=== PATIENT | male | born 1945 | race Caucasian/White ===

== ENCOUNTER 2016-04-19 16:11 | Inpatient (IN) | payer MEDICARE ==
[~2016-04-19] VITALS: Ht 182.9 cm; Wt 123.8 kg
[2016-04-19] MEDS ORDERED: MORPHINE SULFATE 8 MG/ML INJ ONE (16:17)
[2016-04-19] MEDS ORDERED: ONDANSETRON HCL 4 MG/2 ML VIAL ONE (16:18)
[2016-04-19 16:25] VITALS: O2SAT 96
--- NOTE | 2016-04-19 16:40 | PD ---
HPI Chief Complaint: trauma alert Time Seen by Provider: 16:14 Travel History International Travel<30 days: No Contact w/Intl Traveler<30days: No History of Present Illness HPI Patient is a 70-year-old male who presents the emergency department from a trauma alert. Patient was apparently approximately 10 feet on a ladder when he fell, landing on the left side of his body. No LOC. Patient complains of left sided hip and arm pain. EMS noted obvious deformity, humerus fracture and possible left hip fracture. GCS 15 and hemodynamically stable en route. Patient's past medical history includes hypertension. Medications include lisinopril, HCTZ. He denies any known allergies. [facility] Past Medical History Medical History: Unable to Obtain Past Surgical History Surgical History: Unable to Obtain Allergies-Medications (Allergen,Severity, Reaction): Coded Allergies: No Known Allergies (Unverified , 04/19/16) Review of Systems ROS Limitations: Clinical Condition Physical Exam Exam Limitations: Clinical Condition Narrative PRIMARY SURVEY Airway: Intact Breathing: Bilateral breath sounds are equal Circulation: Blood pressure stable. Distal pulses intact Disability: GCS 15 Exposure: Splint to left upper extremity SECONDARY SURVEY General: Obese elderly male hard of hearing Head: Atraumatic Eyes: Left pupil 3 mm, round and reactive. Right pupil is asymmetric, but clearly postsurgical and not reactive ENT: Face is stable to palpation, no hemotympanum Neck: In cervical collar Cardiovascular: Regular rate and rhythm. Distal pulses intact. Respiratory: Clear to auscultation bilaterally. Chest: No tenderness to palpation or crepitus to the chest wall. Abdomen: Soft, nontender, nondistended. Pelvis: Pelvis is stable to AP and lateral compression Back: No tenderness to palpation of the midline spine. No step-offs or crepitus. Extremities: Left upper extremity with obvious deformity to the mid shaft humerus. Good distal sensation and pulses. Any range of motion of the left upper extremity reproduces exquisite pain. Left lower extremity without obvious shortening or rotation but any range of motion at the left hip reproduces exquisite pain. Good distal sensation and pulses. The remainder of the extremities are unremarkable without obvious deformity, normal sensation. Genitourinary: Normal external genitalia. No blood at the urethral meatus. Data Data Orders Ed Poc Ultrasound (04/19/16 ) Morphine Inj (Morphine Inj) (04/19/16 16:17) Ondansetron Inj (Zofran Inj) (04/19/16 16:18) I-Stat Profile (04/19/16 16:23) I-Stat Creatinine (04/19/16 16:23) Complete Blood Count With Diff (04/19/16 16:23) Prothrombin Time / Inr (Pt) (04/19/16 16:23) Act Partial Throm Time (Ptt) (04/19/16 16:23) Type And Screen (04/19/16 16:23) Chest, Single Ap (04/19/16 16:23) Pelvis, Ap Only (Routine) (04/19/16 16:23) Ct Brain W/O Iv Contrast(Rout) (04/19/16 16:23) Ct Cerv Spine W/O Contrast (04/19/16 16:23) Ct Abd/Pel W Iv Contrast(Rout) (04/19/16 16:23) Ct Thorax/ Chest W Iv Contrast (04/19/16 16:23) Iv Access Insert/Monitor (04/19/16 16:23) Ecg Monitoring (04/19/16 16:23) Oximetry (04/19/16 16:23) Oxygen Administration (04/19/16 16:23) Admit Order (Ed Use Only) (04/19/16 16:29) Humerus, One View (04/19/16 ) MDM Medical Screen Exam Complete: Yes Emergency Medical Condition: Yes Medical Record Reviewed: Yes Differential Diagnosis Patient is a 7-year-old male here as a trauma alert after fall from ladder greater than 10 feet. Differential includes closed head injury, skull fracture , ICH, cervical/thoracic/lumbar spine fracture, solid or visceral organ injury, hemothorax, pneumothorax, rib fracture, left humerus fracture, left hip dislocation, left hip fracture, pelvic fracture. Narrative Course Patient met by myself upon emergency department arrival. Based on monitor, IV established and blood obtained. Primary survey unremarkable. Portal chest, pelvis x-rays were obtained that by my read shows questionable left acetabular fracture, and slightly widened mediastinum. Secondary survey notable for obvious left humerus fracture, this was confirmed by x-ray and patient was splinted. Patient was transported to CT for CT of the head, neck, chest abdomen and pelvis with trauma surgery. Critical Care Narrative Aggregate critical care time was 35 minutes. Time to perform other separately billable procedures was not included in the critical care time. My time did not include minutes spent treating any other patients simultaneously or on activities that did not directly contribute to the patient's treatment. The services I provided to this patient were to treat and/or prevent clinically significant deterioration that could result in: Cardiopulmonary decompensation, , disability I provided critical care services requiring my management, as noted below: Chart data review, documentation time, medication orders and management, vital sign assessments/reviewing monitor data, ordering and reviewing lab tests, ordering and interpreting/reviewing x-rays and diagnostic studies, care of the patient and discussion of the patient with the admitting physicians. Trauma Alert - Level One Trauma Alert Level One: Full trauma team activate Time Surgeon Summoned: 15:21 (Surgeon asked to come in) Diagnosis Diagnosis: Primary Impression: Fall Qualified Code: W19.XXXA - Fall, initial encounter Additional Impression: Left humeral fracture Admitting Physician Requests: Admit Ashley Ayon MD Apr 19, 2016 16:40
[2016-04-19 16:50] LABS: I-STAT POTASSIUM 3.8 MMOL/L (3.5-4.9)
--- NOTE | 2016-04-19 16:50 | RADRPT ---
EXAM DATE/TIME: 04/19/2016 16:36 [facility] COMPARISON: No previous studies available for comparison. INDICATIONS : Trauma alert, patient fell off ladder RADIATION DOSE: 64.89 CTDIvol (mGy) MEDICAL HISTORY : Non-responsive. SURGICAL HISTORY : Non-responsive. ENCOUNTER: Initial ACUITY: 1 day PAIN SCALE: Non-responsive LOCATION: cranial TECHNIQUE: Multiple contiguous axial images were obtained of the head. Using automated exposure control and adj ustment of the mA and/or kV according to patient size, radiation dose was kept as low as reasonably a chievable to obtain optimal diagnostic quality images. FINDINGS: CEREBRUM: The ventricles are normal for age. No evidence of midline shift, mass lesion, hemorrhage or acute in farction. No extra-axial fluid collections are seen. POSTERIOR FOSSA: The cerebellum and brainstem are intact. The 4th ventricle is midline. The cerebellopontine angle i s unremarkable. EXTRACRANIAL: The visualized portion of the orbits is intact. SKULL: The calvaria is intact. No evidence of skull fracture. CONCLUSION: Normal examination. Pascual Lizama MD on April 19, 2016 at 16:47 Board Certified Radiologist. This report was verified electronically.
[2016-04-19 16:52] LABS: AUTOMATED NEUTROPHIL # 12.1 TH/MM3 (1.8-7.7); BASOPHIL # 0.1 TH/MM3 (0-0.2); BASOPHIL % 0.8 % (0.0-2.0); EOSINOPHIL # 0.3 TH/MM3 (0-0.4); EOSINOPHIL % 1.7 % (0.0-4.0); HEMATOCRIT 43.7 % (39.0-51.0); HEMO FLAGS DIFF FINAL; LYMPH % 10.6 % (9.0-44.0); LYMPHOCYTE # 1.6 TH/MM3 (1.0-4.8); MEAN CELL VOLUME 91.8 FL (80.0-100.0); MEAN CORPUSCULAR HEMOGLOBIN 30.7 PG (27.0-34.0); MEAN CORPUSCULAR HGB CONC 33.4 % (32.0-36.0); MONO % 8.6 % (0.0-8.0); NEUT % 78.3 % (16.0-70.0); PLATELET COUNT 261 TH/MM3 (150-450); RED BLOOD COUNT 4.76 MIL/MM3 (4.50-5.90); WHITE BLOOD COUNT 15.4 TH/MM3 (4.0-11.0)
[2016-04-19] MEDS ORDERED: IOHEXOL 350 MG/ML 10 ML VIAL (for RAD DIAG) IV ONE (16:55)
--- NOTE | 2016-04-19 16:56 | RADRPT ---
EXAM DATE/TIME: 04/19/2016 16:36 [facility] COMPARISON: No previous studies available for comparison. INDICATIONS : Trauma alert, patient fell off ladder RADIATION DOSE: 35.26 CTDIvol (mGy) MEDICAL HISTORY : Non-responsive. SURGICAL HISTORY : Non-responsive. ENCOUNTER: Initial ACUITY: 1 day PAIN SCALE: Non-responsive LOCATION: neck TECHNIQUE: Volumetric scanning of the cervical spine was performed. Multiplanar reconstructions in the sagittal, coronal and oblique axial planes were performed. Using automated exposure control and adjustment o f the mA and/or kV according to patient size, radiation dose was kept as low as reasonably achievable to obtain optimal diagnostic quality images. FINDINGS: Soft tissue negative. Bony structures are intact without fracture, compression, subluxation, or destr uctive change. The odontoid has a normal relationship to the arch of C1. Mild degenerative changes ar e noted at the levels of C4-5 C5-6 and C6-7 degenerative disc disease with mild spurring inclusive of seeing 45 minimal central disc bulge C5-6 osteophyte disc complex paracentral to the left and some m ild interspersed posterior facet arthritic change. CONCLUSION: No acute bony injury. Degenerative changes as described Pascual Lizama MD on April 19, 2016 at 16:52 Board Certified Radiologist. This report was verified electronically.
--- NOTE | 2016-04-19 16:57 | RADRPT ---
EXAM DATE/TIME: 04/19/2016 16:07 [facility] COMPARISON: No previous studies available for comparison. INDICATIONS : Trauma alert. Fell from ladder today. MEDICAL HISTORY : None. SURGICAL HISTORY : None. ENCOUNTER: Initial ACUITY: 1 day PAIN SCORE: Non-responsive. LOCATION: Bilateral chest FINDINGS: A single view of the chest demonstrates the lungs to be symmetrically aerated without evidence of mas s, infiltrate or effusion. The cardiomediastinal contours are unremarkable. Osseous structures are intact. CONCLUSION: No acute disease. Pascual Lizama MD on April 19, 2016 at 16:55 Board Certified Radiologist. This report was verified electronically.
--- NOTE | 2016-04-19 16:58 | RADRPT ---
EXAM DATE/TIME: 04/19/2016 16:07 CORRECTION Corrected on: April 20, 2016; CORRECTED: Corrected spelling of CONCLUSION: [facility] COMPARISON: No previous studies available for comparison. INDICATIONS : Trauma alert. Fall from ladder today MEDICAL HISTORY : None. SURGICAL HISTORY : None. ENCOUNTER: Initial ACUITY: 1 day PAIN SCORE: Non-responsive. LOCATION: Pelvis FINDINGS: A single frontal view of the pelvis demonstrates no evidence of fracture. The bony pelvic ring is in tact. Bony mineralization is normal. The soft tissues are intact. CONCLUSION: Intact pelvis Pascual Lizama MD on April 19, 2016 at 16:56 Board Certified Radiologist. This report was verified electronically. Taniya Shaw on April 20, 2016 at 10:02 Board Certified Radiologist. This report was verified electronically.
--- NOTE | 2016-04-19 16:59 | RADRPT ---
EXAM DATE/TIME: 04/19/2016 16:07 This report includes an Addendum and supersedes previous reports for this exam. [facility] COMPARISON: No previous studies available for comparison. INDICATIONS : Trauma alert. Fall from ladder today MEDICAL HISTORY : None. SURGICAL HISTORY : None. ENCOUNTER: Initial ACUITY: 1 day PAIN SCORE: Non-responsive. LOCATION: Left upper arm FINDINGS: Single view of the left humerus demonstrates no evidence of fracture. Bony mineralization is normal. CONCLUSION: Negative exam Pascual Lizama MD on April 19, 2016 at 16:57 Board Certified Radiologist. This report was verified electronically. ADDENDUM: Incoordination and review of CT scan of thorax what appears to represent possible over lying external wrap or soft tissue across the mid humerus actually represents a overlying fracture. Pascual Lizama MD on April 19, 2016 at 18:26 Board Certified Radiologist. This report was verified electronically.
[2016-04-19] MEDS ORDERED: MORPHINE SULFATE 4 MG/ML INJ IV ONE (17:00)
[2016-04-19 17:03] LABS: APTT (PATIENT) 23.3 SEC (24.3-30.1); PROTHROMBIN TIME - PATIENT 11.5 SEC (9.8-11.6)
[2016-04-19 17:13] VITALS: BP 159/73; PULSE 77; RESP 21; O2SAT 96
[2016-04-19] MEDS ORDERED: FENO50TA PO (17:19)
[2016-04-19] MEDS ORDERED: LISI40TA PO (17:19)
[2016-04-19] MEDS ORDERED: HYDR50TA3 PO (17:19)
--- NOTE | 2016-04-19 17:20 | RADRPT ---
EXAM DATE/TIME: 04/19/2016 16:45 [facility] COMPARISON: No previous studies available for comparison. INDICATIONS : Trauma alert, fall from ladder IV CONTRAST: 97 cc Omnipaque 350 (iohexol) IV ; Cumulative dose for multiple exams. ORAL CONTRAST: No oral contrast ingested. RADIATION DOSE: 20.09 CTDIvol (mGy) MEDICAL HISTORY : Non-responsive. SURGICAL HISTORY : Non-responsive. ENCOUNTER: Initial ACUITY: 1 day PAIN SCALE: Non-responsive LOCATION: abdomen TECHNIQUE: Volumetric scanning of the abdomen and pelvis was performed. Using automated exposure control and ad justment of the mA and/or kV according to patient size, radiation dose was kept as low as reasonably achievable to obtain optimal diagnostic quality images. FINDINGS: LOWER LUNGS: The visualized lower lungs are clear. LIVER: Homogeneous density without lesion. There is no dilation of the biliary tree. No calcified gallston es. Gallbladder sutures luminal structure without wall thickening SPLEEN: Normal size without lesion. PANCREAS: Within normal limits. KIDNEYS: Normal in size and shape. There is no mass, stone or hydronephrosis. ADRENAL GLANDS: Within normal limits. VASCULAR: There is no aortic aneurysm. BOWEL/MESENTERY: The stomach, small bowel, and colon demonstrate no acute abnormality. There is no free intraperitone al air or fluid. ABDOMINAL WALL: Within normal limits. RETROPERITONEUM: There is no lymphadenopathy. BLADDER: No wall thickening or mass. REPRODUCTIVE: Within normal limits. INGUINAL: There is no lymphadenopathy or hernia. MUSCULOSKELETAL: There is a fracture of the left iliac wing which is vertically oriented and extends into the acetabul um both the anterior posterior pillar and into the junction of the superior pubic ramus with the acet abulum. At the anterior acetabulum a few fragments are mildly distracted. There is no evidence of dis location. CONCLUSION: Left acetabular fracture as described above which is an extension from the left iliac wing fracture. No dislocation. Intra-abdominal pelvic contents are negative. Pascual Lizama MD on April 19, 2016 at 17:12 Board Certified Radiologist. This report was verified electronically.
--- NOTE | 2016-04-19 17:22 | RADRPT ---
EXAM DATE/TIME: 04/19/2016 16:45 [facility] COMPARISON: No previous studies available for comparison. INDICATIONS : Trauma alert, fall from ladder IV CONTRAST: 97 cc Omnipaque 350 (iohexol) IV ; Cumulative dose for multiple exams. RADIATION DOSE: 20.09 CTDIvol (mGy) ; Combined studies - Thorax/Abdomen/Pelvis MEDICAL HISTORY : Non-responsive. SURGICAL HISTORY : Non-responsive. ENCOUNTER: Initial ACUITY: 1 day PAIN SCALE: Non-responsive LOCATION: chest TECHNIQUE: Volumetric scanning of the chest was performed. Using automated exposure control and adjustment of t he mA and/or kV according to patient size, radiation dose was kept as low as reasonably achievable to obtain optimal diagnostic quality images. FINDINGS: LUNGS: There is no consolidation or pneumothorax. No concerning pulmonary nodule is visualized. PLEURA: There is no pleural thickening or pleural effusion. MEDIASTINUM: The heart and great vessels demonstrate no acute abnormality. There is no mediastinal or hilar lymph adenopathy. AXILLAE: Within normal limits. No lymphadenopathy. SKELETAL: Demonstrates a offset angulated fracture mid shaft of the left humerus. MISCELLANEOUS: The visualized upper abdominal organs demonstrate no acute abnormality. CONCLUSION: Negative examination other than appreciation of a slightly angulated offset fracture mid left humerus Pascual Lizama MD on April 19, 2016 at 17:18 Board Certified Radiologist. This report was verified electronically.
[2016-04-19] MEDS ORDERED: Post-op Orders (for Pharmacy) MISC XX ONE (17:30)
[2016-04-19] MEDS ORDERED: NALOXONE HCL 0.4 MG/ML AMP IV PRN (17:30)
[2016-04-19] MEDS ORDERED: SODIUM CHLORIDE 0.9% FLUSH 5 ML FLUSH IVF PRN (17:30)
--- NOTE | 2016-04-19 18:00 | RADRPT ---
EXAM DATE/TIME: 04/19/2016 17:40 [facility] COMPARISON: No previous studies available for comparison. INDICATIONS : Trauma alert. Patient fell off of ladder today. Left wrist pain. MEDICAL HISTORY : None. SURGICAL HISTORY : None. ENCOUNTER: Initial ACUITY: 1 day PAIN SCORE: Non-responsive. LOCATION: Left Wrist FINDINGS: Limited views of the wrist suggest abnormal first metacarpal multangular articulation questionable k[place] injury or dislocation. Radius and ulna appear intact. CONCLUSION: Abnormal appearance of base of the first metacarpal multangular articulation which could represent oc cult bony injury or dislocation on these limited views. Further evaluation with multi-obliquity plain film radiography of the wrist may be wording of consideration or CT scan Pascual Lizama MD on April 19, 2016 at 17:57 Board Certified Radiologist. This report was verified electronically.
[2016-04-19] MEDS: SODIUM CHLOR 0.9% 1000 ML INJ 1,000 ML IV SCH (18:01)
[2016-04-19] MEDS: PANTOPRAZOLE SOD 40 MG DELAYED RELEASE TAB PO SCH (18:02)
[2016-04-19] MEDS: ENOXAPARIN SODIUM 40 MG/0.4 ML SYRINGE SQ SCH (18:02)
[2016-04-19] MEDS: SODIUM CHLORIDE 0.9% FLUSH 5 ML FLUSH IVF SCH (20:18)
[2016-04-19] MEDS: DOCUSATE SODIUM 100 MG CAP PO SCH (20:18)
--- NOTE | 2016-04-19 20:21 | MH ---
cc: DIANE BATEMAN MD DATE OF ADMISSION 04/19/2016 ADMISSION DIAGNOSIS Fall from ladder, comminuted left acetabular fracture and left humerus fracture HISTORY OF PRESENT ILLNESS This 71-year-old male was climbing some sort of a ladder, fell about 10 feet on the ground, grass, hitting his left hip and left arm first. The patient did not sustain any brain injury. When seen, his [place] coma scale was 15. The patient was placed on spinal board with a C-collar in place, brought here as a priority one trauma alert. The patient, on arrival, is awake and alert and oriented. PAST MEDICAL HISTORY Hypertension. The patient takes hydrochlorothiazide PAST SURGICAL HISTORY Negative. MEDICATIONS Hydrochlorothiazide ALLERGIES No allergies. SOCIAL HISTORY He is retired. PHYSICAL EXAMINATION GENERAL: A 71-year-old male in moderate distress due to the left hip pain. HEENT: Normocephalic. No trauma to the head. Left pupil is reactive about 3 mm, right one is barely reactive. The patient has a dusky appearance of the pupil with some ground glass appearance in the sclera. He has hemianopsia on the right from a previous trauma to the eye. Extraocular muscles appear to be intact. NECK: Bilateral carotid pulses. No signs of trauma to the neck. C-collar is repositioned. CHEST: Bilateral breath sounds. No signs of trauma to the chest. HEART: Regular rhythm. ABDOMEN: Soft. Active bowel sounds. Obese. No signs of trauma to the abdomen. EXTREMITIES: The patient has bilateral femoral, popliteal, dorsalis pedis, posterior tibial pulse on palpation. Bilateral brachial, radial, ulnar pulses on palpation. He has deformity of the left arm mid humerus consistent with a trans humeral fracture. On examination, the patient had severe pain on movement of the left leg consistent with a left acetabular fracture. NEUROLOGIC: Neurologically, The patient is grossly intact. [place] coma scale is 15. PROTOCOL RESUSCITATION The patient is resuscitated under trauma principals. Primary secondary survey resuscitation and definitive care are carried out simultaneously. The patient's hemodynamic status is maintained. He is taken to the CT scan. The final injuries are left humerus fracture with displacement, left acetabular and pelvic fracture with shattered acetabulum in multiple pieces and extension into the ala ileum. PLAN The patient is being admitted for further care. Orthopedics has been consulted. Diane AVILES/ /6:40 PM /8:06 PM
[2016-04-19 20:47] VITALS: BP 150/72; PULSE 81; RESP 19; TEMP 98.8; O2SAT 93
[2016-04-19] MEDS: MORPHINE SULFATE 4 MG/ML INJ IV PRN (22:46)
[2016-04-20 00:48] VITALS: BP 125/65; PULSE 86; RESP 18; TEMP 97.8; O2SAT 93
[2016-04-20 04:45] VITALS: BP 138/71; PULSE 89; RESP 18; TEMP 98; O2SAT 92
[2016-04-20] MEDS: SODIUM CHLOR 0.9% 1000 ML INJ 1,000 ML IV SCH ×2 (04:51→20:42)
[2016-04-20 06:57] LABS: HEMATOCRIT 38.4 % (39.0-51.0); MEAN CELL VOLUME 91.7 FL (80.0-100.0); MEAN CORPUSCULAR HEMOGLOBIN 31.3 PG (27.0-34.0); MEAN CORPUSCULAR HGB CONC 34.1 % (32.0-36.0); PLATELET COUNT 228 TH/MM3 (150-450); RED BLOOD COUNT 4.19 MIL/MM3 (4.50-5.90); RED CELL DISTRIBUTION WIDTH 14.3 % (11.6-17.2); REVIEW FLAG FINAL; WHITE BLOOD COUNT 12.6 TH/MM3 (4.0-11.0)
[2016-04-20 08:00] VITALS: BP 138/69; PULSE 86; RESP 19; TEMP 98.1; O2SAT 94
[2016-04-20] MEDS: PANTOPRAZOLE SOD 40 MG DELAYED RELEASE TAB PO SCH (09:00)
[2016-04-20] MEDS: DOCUSATE SODIUM 100 MG CAP PO SCH ×2 (09:00→20:42)
[2016-04-20] MEDS: HYDROCHLOROTHIAZIDE 12.5 MG CAP PO SCH (09:29)
[2016-04-20] MEDS: LISINOPRIL 20 MG TAB PO SCH (09:29)
[2016-04-20] MEDS: MORPHINE SULFATE 4 MG/ML INJ IV PRN ×4 (09:30→23:31)
[2016-04-20] MEDS: SODIUM CHLORIDE 0.9% FLUSH 5 ML FLUSH IVF SCH ×2 (09:31→20:42)
[2016-04-20 12:00] VITALS: BP 142/76; PULSE 88; RESP 19; TEMP 98.1; O2SAT 93
--- NOTE | 2016-04-20 13:31 | OTSOAPIP ---
TIME SESSION COMPLETED: PM TREATMENT TIME: 0 MINS. CHART REVIEWED. RECEIVED ORDERS FROM [facility] TO EVALUATE AND TREAT. PATIENT WAS ADMITTED AFTER FALLING DOWN A LADDER AND SUSTAINED A LEFT HUMUER FRACTURE AND LEFT ACETABULAR FRACTURE PENDING REPAIR. PLAN: WILL HOLD ASSESSMENT UNTIL SURGERY IS COMPLETED TO PREVENT FURTHER INJURY Therapist: BELLO OVIEDO/L Signature on file
--- NOTE | 2016-04-20 14:40 | HHI.PR ---
Subjective Subjective Notes Awaiting Ortho evaluation Complains of pelvic pain with movement Objective Vitals/I&O Vital Signs Date Time Temp Pulse Resp B/P Pulse Ox O2 Delivery O2 Flow Rate FiO2 04/20/16 12:00 98.1 88 19 142/76 93 04/19/16 17:13 Nasal Cannula 2 Labs Laboratory Tests Test 04/19/16 04/20/16 16:25 06:03 White Blood Count 15.4 12.6 Red Blood Count 4.76 4.19 Hemoglobin 14.6 13.1 Bedside Hemoglobin 15.3 Hematocrit 43.7 38.4 Bedside Hematocrit 45.0 Mean Corpuscular Volume 91.8 91.7 Mean Corpuscular Hemoglobin 30.7 31.3 Mean Corpuscular Hemoglobin 33.4 34.1 Concent Red Cell Distribution Width 14.0 14.3 Platelet Count 261 228 Mean Platelet Volume 8.2 8.4 Neutrophils (%) (Auto) 78.3 Lymphocytes (%) (Auto) 10.6 Monocytes (%) (Auto) 8.6 Eosinophils (%) (Auto) 1.7 Basophils (%) (Auto) 0.8 Neutrophils # (Auto) 12.1 Lymphocytes # (Auto) 1.6 Monocytes # (Auto) 1.3 Eosinophils # (Auto) 0.3 Basophils # (Auto) 0.1 CBC Comment DIFF FINAL Differential Comment Prothrombin Time 11.5 Prothromb Time International 1.0 Ratio Activated Partial 23.3 Thromboplast Time Bedside Sodium 143 Bedside Potassium 3.8 Bedside Chloride 105 Bedside Blood Urea Nitrogen 22 Bedside Creatinine 1.1 Bedside Glucose 151 Blood Type O POSITIVE Antibody Screen NEGATIVE Radiology Last Impressions Pelvis X-Ray 04/19/161622 Signed Impressions: Service Date/Time: Tuesday, April 19, 2016 16:07 - CONCLUSION: [facility] COMPARISON: No previous studies available for comparison. INDICATIONS : Trauma alert. Fall from ladder today MEDICAL HISTORY : None. SURGICAL HISTORY : None. ENCOUNTER : Initial ACUITY: 1 day PAIN SCORE: Non-responsive. LOCATION: Pelvis FINDINGS: A single frontal view of the pelvis demonstrates no evidence of fracture. The bony pelvic ring is intact. Bony mineralization is normal. The soft tissues are intact. CONCLUSION: Intact pelvis Pascual Lizama MD Head CT 04/19/161622 Signed Impressions: Service Date/Time: Tuesday, April 19, 2016 16:36 - CONCLUSION: Normal examination. Pascual Lizama MD Chest X-Ray 04/19/16 1623 Signed Impressions: Service Date/Time: Tuesday, April 19, 2016 16:07 - CONCLUSION: No acute disease. Pascual Lizama MD Chest CT 04/19/16 1623 Signed Impressions: Service Date/Time: Tuesday, April 19, 2016 16:45 - CONCLUSION: Negative examination other than appreciation of a slightly angulated offset fracture mid left humerus Pascual Lizama MD Cervical Spine CT 04/19/16 162 Signed Impressions: Service Date/Time: Tuesday, April 19, 2016 16:36 - CONCLUSION: No acute bony injury. Degenerative changes as described Pascual Lizama MD Abdomen/Pelvis CT 04/19/16 162 Signed Impressions: Service Date/Time: Tuesday, April 19, 2016 16:45 - CONCLUSION: Left acetabular fracture as described above which is an extension from the left iliac wing fracture. No dislocation. Intra-abdominal pelvic contents are negative. Pascual Lizama MD Wrist X-Ray 04/19/16 0000 Signed Impressions: Service Date/Time: Tuesday, April 19, 2016 17:40 - CONCLUSION: Abnormal appearance of base of the first metacarpal multangular articulation which could represent occult bony injury or dislocation on these limited views. Further evaluation with multi-obliquity plain film radiography of the wrist may be wording of consideration or CT scan Pascual Lizama MD Humerus X-Ray 04/19/16 0000 Signed Impressions: Service Date/Time: Tuesday, April 19, 2016 16:07 - CONCLUSION: Negative exam Pascual Lizama MD ADDENDUM: Incoordination and review of CT scan of thorax what appears to represent possible overlying external wrap or soft tissue across the mid humerus actually represents a overlying fracture. Pascual Lizama MD Narrative Exam GENERAL: 71-year-old well-nourished, well developed male lying in bed. SKIN: Warm and dry. HEAD: Atraumatic. Normocephalic. EYES: PERRL. ENT: No nasal bleeding or discharge. Mucous membranes pink and moist. NECK: Trachea midline. No JVD. CARDIOVASCULAR: Regular rate and rhythm. RESPIRATORY: No accessory muscle use. Lungs clear to auscultation. Breath sounds equal bilaterally. GASTROINTESTINAL: Abdomen soft, non-tender, nondistended. + BS. MUSCULOSKELETAL: Extremities without cyanosis, or edema. LEFT arm with soft splint and sling in place. NEUROLOGICAL: Awake and alert. Normal speech. A/P Assessment and Plan WICHITA: Patient fell approx 10 feet while climbing a ladder and landed in the grass on his LEFT side. No LOC, GCS 15. Initial complaints of LEFT arm and hip pain. INJURIES: LEFT humerus fx LEFT acetabular fx extending to LEFT iliac wing First metacarpal occult bony injury vs dislocation PMHx: HTN Diet: Clears advanced to regular diet. Pulmonary: IS, encouraged patient use. Pain: Percocet, Morphine IV Activity: BR, PT, OT ordered. GI: Protonix PO Bowel: Colace-patient refusing. Educated on narcotic constipation and need for bowel regimen. DVT: Lovenox, SCD's Awaiting Ortho evaluation for left arm and pelvic fractures. History of hypertension, started home HCTZ and lisinopril. Plan of care discussed with patient and RN at bedside. Garth Flor Apr 20, 2016 14:40
[2016-04-20 16:00] VITALS: BP 140/72; PULSE 81; RESP 20; TEMP 99.2; O2SAT 92; O2SAT 93
--- NOTE | 2016-04-20 16:48 | EKG ---
Date Performed: 04/19/2016 Time Performed: 17:29:53 PTAGE: 89 years EKG: Sinus rhythm NONSPECIFIC T-WAVE ABNORMALITY BORDERLINE ECG NO PREVIOUS TRACING DOCTOR: Ron Cerna Interpretating Date/Time 04/20/2016 16:47:16
--- NOTE | 2016-04-20 17:55 | MB ---
cc: FELI ANDERSON M.D. DATE OF CONSULTATION: 04/20/2016 REASON FOR CONSULTATION: Multiple trauma, left acetabular fracture, left humerus fracture. HISTORY OF PRESENT ILLNESS: This is a 71-year-old male who fell from a ladder hitting the ground injuring the left hip and the left arm. He did not sustain a head injury and did not have loss of consciousness. He presents to [facility] Emergency Room. He initially had spinal precautions. He was brought as a trauma alert patient by mechanism. He was awake and alert upon arrival. He was complaining of severe left hip pain, moderate left arm pain. PAST MEDICAL HISTORY: His past medical history is positive for hypertension. PAST SURGICAL HISTORY: None. MEDICATIONS: Hydrochlorothiazide. ALLERGIES: NO KNOWN DRUG ALLERGIES. SOCIAL HISTORY: He is retired. Nonsmoker and non-drinker. FAMILY HISTORY: Reviewed. Noncontributory. REVIEW OF SYSTEMS: A ten-point review of systems is negative other than the history of present illness. PHYSICAL EXAMINATION: GENERAL: He is awake and alert and lying in bed in mild distress. HEAD, EYES, EARS, NOSE, THROAT: Normocephalic and atraumatic. Pupils are round. No scleral icterus. NECK: The neck is supple. LUNGS: Clear. HEART: Regular rhythm. ABDOMEN: Abdomen soft and nontender. EXTREMITIES: Left upper extremity has swelling and ecchymosis in the region of the humerus. He can flex and extend his wrist and digits. Brisk capillary refill. He is currently in a coaptation splint. On physical examination of the left hip, he has tenderness to palpation on the left side. He can flex and extend his ankles and toes distally. He has pain with any passive motion of the left hip. IMAGING STUDIES: X-rays of the left humerus reveal a left mid-shaft humerus fracture with only mild displacement and angular deformity. CT scan of the pelvis does reveal a comminuted left acetabular fracture, which extends into the ilium. IMPRESSION: A 71-year-old male who is status post fall from a ladder with left acetabular fracture and left humerus fracture. PLAN: I do believe, based on his fracture pattern, he would benefit from open reduction internal fixation of the acetabulum. In regards to the humerus, it is reasonable to consider surgical intervention due to the fact that he has a lower extremity injury and an upper extremity injury. The benefits of surgical intervention would include allowing at least partial weightbearing status for purposes of transfer, use of a walker. The other option would be nonoperative treatment maintaining a splint with careful observation and follow up. At this time, I will also consult Dr. Noble Gillespie who has a trauma sub-specialty training for acetabular fractures. Sequential compression devices for the lower extremities. The patient has asked appropriate questions, which have been answered today. MD YUDELKA Brian/LYNNETTE /4:21 PM /5:43 PM
[2016-04-20] MEDS: ENOXAPARIN SODIUM 40 MG/0.4 ML SYRINGE SQ SCH (18:00)
[2016-04-20 20:47] VITALS: BP 119/60; PULSE 95; RESP 19; TEMP 98.1; O2SAT 94
[2016-04-21] VITALS (7 sets, daily range): BP systolic 135–157; BP diastolic 67–78; PULSE 86–95; RESP 16–18; TEMP 96.9–98.9; O2SAT 92–94
[2016-04-21] MEDS: MORPHINE SULFATE 4 MG/ML INJ IV PRN (06:21)
--- NOTE | 2016-04-21 06:42 | PD.ORT.PN ---
Subjective Subjective Remarks s/p fall off ladder while trimming trees left hip pain and left arm pain Objective Vitals Vital Signs Date Time Temp Pulse Resp B/P Pulse Ox O2 Delivery O2 Flow Rate FiO2 04/21/16 04:32 98.4 89 18 142/78 92 04/21/16 00:45 97.4 95 16 153/67 92 04/20/16 23:36 20 04/20/16 20:47 98.1 95 19 119/60 94 04/20/16 16:00 99.2 81 20 140/72 92 04/20/16 12:00 98.1 88 19 142/76 93 04/20/16 08:00 98.1 86 19 138/69 94 I/O 04/20/16 04/20/16 04/20/16 04/21/16 04/21/16 04/21/16 07:00 15:00 23:00 07:00 15:00 23:00 Intake Total 891 ml 720 ml 2184 ml Output Total 200 ml 350 ml Balance 691 ml 370 ml 2184 ml Intake Oral 240 ml 720 ml IV Total 651 ml 2184 ml Output Urine Total 200 ml 350 ml # Voids 5 # Bowel Movements 0 0 0 Result Diagram: 04/20/16 0603 Objective Remarks LLE: pain in hip with ROM. NVI distally with good cap refill LUE: + coap splint. good ROM of fingers. NVI to median/ulnar/radial nerve Assessment & Plan Assessment and Plan 1) Left Acetabulum fx 2) Left Humerus Fx -resume diet -sign consents -new xrays of left humerus today -NPO after MN -surgery tomorrow -hold lovenox -type and screen 2 units Gamaliel Wallace Apr 21, 2016 06:42
[2016-04-21] MEDS: PANTOPRAZOLE SOD 40 MG DELAYED RELEASE TAB PO SCH (09:13)
[2016-04-21] MEDS: LISINOPRIL 20 MG TAB PO SCH (09:13)
[2016-04-21] MEDS: HYDROCHLOROTHIAZIDE 12.5 MG CAP PO SCH (09:13)
[2016-04-21] MEDS: DOCUSATE SODIUM 100 MG CAP PO SCH ×2 (09:13→22:29)
[2016-04-21] MEDS: SODIUM CHLORIDE 0.9% FLUSH 5 ML FLUSH IVF SCH ×2 (09:14→22:29)
[2016-04-21] MEDS: SODIUM CHLOR 0.9% 1000 ML INJ 1,000 ML IV SCH ×2 (09:16→19:16)
[2016-04-21] MEDS: oxyCODONE/ACETAMINOPHEN 5 MG/325 MG TAB PO PRN ×2 (10:52→17:57)
--- NOTE | 2016-04-21 13:16 | RADRPT ---
EXAM DATE/TIME: 04/21/2016 06:45 [facility] COMPARISON: No previous studies available for comparison. INDICATIONS: Trauma. ; Reconstructed from previous dataset MEDICAL HISTORY: Unobtainable. SURGICAL HISTORY: Obtainable. ENCOUNTER: Initial ACUITY: 2 days PAIN SCALE: 10/10 LOCATION: Pelvis TECHNIQUE: 3D reconstructions of the acetabulum were performed. FINDINGS: 3D reconstructions were obtained of the comminuted fracture of the acetabulum. There is a large vert ical component that extends through the iliac wing that is displaced by approximately 1.5 cm. Multip le fracture fragments are seen in the roof of the acetabulum. Symphysis is intact. There is a fracture of the posterior lip of the acetabulum with fragmentation. CONCLUSION: 3D reconstructions as described above. Parmjit Silveira MD FACR on April 21, 2016 at 12:33 Board Certified Radiologist. This report was verified electronically.
--- NOTE | 2016-04-21 14:25 | RADRPT ---
EXAM DATE/TIME: 04/21/2016 11:19 [facility] COMPARISON: CT 3D/SPECIAL RECONSTRUCTION, April 21, 2016, 6:45. INDICATIONS : Left arm Pain MEDICAL HISTORY : None. SURGICAL HISTORY : None. ENCOUNTER: Subsequent ACUITY: 3 days PAIN SCORE: 10/10 LOCATION: Left upper extremity FINDINGS: 2 views of the left humerus demonstrate a angulated mildly displaced fracture of the left humerus, mi d diaphysis with the distal portion of the humerus displaced medially one full shaft width and angula azeb approximately 45. The bones are normally mineralized. Adjacent soft tissues demonstrate moderate edema adjacent to the fracture site. CONCLUSION: Fracture of the left mid diaphysis with distal displacement approximate one shaft width medially. Carmencita Sherman MD on April 21, 2016 at 12:37 Board Certified Radiologist. This report was verified electronically.
--- NOTE | 2016-04-21 14:42 | HHI.PR ---
Subjective Subjective Notes Getting hip and left humerus repaired tomorrow Still having hip pain Objective Vitals/I&O Vital Signs Date Time Temp Pulse Resp B/P Pulse Ox O2 Delivery O2 Flow Rate FiO2 04/21/16 12:15 98.5 86 18 150/68 94 04/21/16 09:35 Nasal Cannula 2.00 Labs Laboratory Tests Test 04/19/16 04/20/16 16:25 06:03 Bedside Hemoglobin 15.3 G/DL Bedside Hematocrit 45.0 % Neutrophils (%) (Auto) 78.3 % Lymphocytes (%) (Auto) 10.6 % Monocytes (%) (Auto) 8.6 % Eosinophils (%) (Auto) 1.7 % Basophils (%) (Auto) 0.8 % Neutrophils # (Auto) 12.1 TH/MM3 Lymphocytes # (Auto) 1.6 TH/MM3 Monocytes # (Auto) 1.3 TH/MM3 Eosinophils # (Auto) 0.3 TH/MM3 Basophils # (Auto) 0.1 TH/MM3 CBC Comment DIFF FINAL Differential Comment Prothrombin Time 11.5 SEC Prothromb Time International 1.0 RATIO Ratio Activated Partial 23.3 SEC Thromboplast Time Bedside Sodium 143 MMOL/L Bedside Potassium 3.8 MMOL/L Bedside Chloride 105 MMOL/L Bedside Blood Urea Nitrogen 22 MG/DL Bedside Creatinine 1.1 MG/DL Bedside Glucose 151 MG/DL Blood Type O POSITIVE Antibody Screen NEGATIVE White Blood Count 12.6 TH/MM3 Red Blood Count 4.19 MIL/MM3 Hemoglobin 13.1 GM/DL Hematocrit 38.4 % Mean Corpuscular Volume 91.7 FL Mean Corpuscular Hemoglobin 31.3 PG Mean Corpuscular Hemoglobin 34.1 % Concent Red Cell Distribution Width 14.3 % Platelet Count 228 TH/MM3 Mean Platelet Volume 8.4 FL Radiology Last Impressions Pelvis X-Ray 04/19/16 1623 Signed Impressions: Service Date/Time: Tuesday, April 19, 2016 16:07 - CONCLUSION: [facility] COMPARISON: No previous studies available for comparison. INDICATIONS : Trauma alert. Fall from ladder today MEDICAL HISTORY : None. SURGICAL HISTORY : None. ENCOUNTER : Initial ACUITY: 1 day PAIN SCORE: Non-responsive. LOCATION: Pelvis FINDINGS: A single frontal view of the pelvis demonstrates no evidence of fracture. The bony pelvic ring is intact. Bony mineralization is normal. The soft tissues are intact. CONCLUSION: Intact pelvis Pascual Lizama MD Head CT 04/19/161622 Signed Impressions: Service Date/Time: Tuesday, April 19, 2016 16:36 - CONCLUSION: Normal examination. Pascual Lizama MD Chest X-Ray 04/19/16 162 Signed Impressions: Service Date/Time: Tuesday, April 19, 2016 16:07 - CONCLUSION: No acute disease. Pascual Lizama MD Chest CT 04/19/16 162 Signed Impressions: Service Date/Time: Tuesday, April 19, 2016 16:45 - CONCLUSION: Negative examination other than appreciation of a slightly angulated offset fracture mid left humerus Pascual Lizama MD Cervical Spine CT 04/19/16 162 Signed Impressions: Service Date/Time: Tuesday, April 19, 2016 16:36 - CONCLUSION: No acute bony injury. Degenerative changes as described Pascual Lizama MD Abdomen/Pelvis CT 04/19/161622 Signed Impressions: Service Date/Time: Tuesday, April 19, 2016 16:45 - CONCLUSION: Left acetabular fracture as described above which is an extension from the left iliac wing fracture. No dislocation. Intra-abdominal pelvic contents are negative. Pascual Lizama MD Wrist X-Ray 04/19/16 0000 Signed Impressions: Service Date/Time: Tuesday, April 19, 2016 17:40 - CONCLUSION: Abnormal appearance of base of the first metacarpal multangular articulation which could represent occult bony injury or dislocation on these limited views. Further evaluation with multi-obliquity plain film radiography of the wrist may be wording of consideration or CT scan Pascual Lizama MD Humerus X-Ray 04/19/16 0000 Signed Impressions: Service Date/Time: Tuesday, April 19, 2016 16:07 - CONCLUSION: Negative exam Pascual Lizama MD ADDENDUM: Incoordination and review of CT scan of thorax what appears to represent possible overlying external wrap or soft tissue across the mid humerus actually represents a overlying fracture. Pascual Lizama MD Narrative Exam GENERAL: 71-year-old well-nourished, well developed male lying in bed. SKIN: Warm and dry. HEAD: Atraumatic. Normocephalic. EYES: PERRL. ENT: No nasal bleeding or discharge. Mucous membranes pink and moist. NECK: Trachea midline. No JVD. CARDIOVASCULAR: Regular rate and rhythm. RESPIRATORY: No accessory muscle use. Lungs clear to auscultation. Breath sounds equal bilaterally. GASTROINTESTINAL: Abdomen soft, non-tender, nondistended. + BS. MUSCULOSKELETAL: Extremities without cyanosis, or edema. LEFT arm with soft splint and sling in place. NEUROLOGICAL: Awake and alert. Normal speech. A/P Assessment and Plan [place]: Patient fell approx 10 feet while climbing a ladder and landed in the grass on his LEFT side. No LOC, GCS 15. Initial complaints of LEFT arm and hip pain. INJURIES: LEFT humerus fx LEFT acetabular fx extending to LEFT iliac wing First metacarpal occult bony injury vs dislocation PMHx: HTN Diet: Regular, tolerating. Pulmonary: IS, encouraged patient use. Pain: Percocet, Morphine IV, still painful. Activity: BR, PT, OT evaluating GI: Protonix PO Bowel: Colace, MOM. No BM yet. DVT: Lovenox, SCD's Left arm and left acetabulum fracture repair in OR tomorrow with Ortho. Hx of HTN. Patient unsure of home dosage of lisinopril or HCTZ. Plan of care discussed with patient at bedside. Garth Flor Apr 21, 2016 14:42
[2016-04-22] VITALS: BP 134/70; PULSE 86; RESP 18; TEMP 99; O2SAT 92
[2016-04-22] MEDS: MORPHINE SULFATE 4 MG/ML INJ IV PRN ×2 (01:30→06:19)
[2016-04-22] MEDS ORDERED: SODIUM CHLORID 0.9% 500 ML IV SCH (02:30)
[2016-04-22] MEDS ORDERED: INSULIN HUMAN REGULAR 1,000 UNITS/10 ML VIAL SQ PRN (02:30)
[2016-04-22] MEDS ORDERED: LACTATED RINGER'S 1000 ML IV SCH (02:30)
[2016-04-22] MEDS ORDERED: METOPROLOL TARTRATE 25 MG TAB PO PRN (02:30)
[2016-04-22 04:00] VITALS: BP 143/70; PULSE 94; RESP 18; TEMP 99.2; O2SAT 93
[2016-04-22] MEDS ORDERED: SODIUM CHLORIDE 0.9% IV ONE (07:15)
[2016-04-22] MEDS ORDERED: TRANEXAMIC ACID IV ONE (07:15)
--- NOTE | 2016-04-22 07:16 | PD.ORT.PN ---
Subjective Subjective Remarks Resting comfortably with pain controlled Objective Vitals Vital Signs Date Time Temp Pulse Resp B/P Pulse Ox O2 Delivery O2 Flow Rate FiO2 04/22/16 04:00 99.2 94 18 143/70 93 04/22/16 00:00 99.0 86 18 134/70 92 04/21/16 20:00 96.9 92 16 157/74 92 04/21/16 18:57 18 04/21/16 16:00 98.9 94 18 153/73 92 04/21/16 12:15 98.5 86 18 150/68 94 04/21/16 09:35 93 Nasal Cannula 2.00 04/21/16 07:46 98.6 86 18 135/69 94 I/O 04/21/16 04/21/16 04/21/16 04/22/16 04/22/16 04/22/16 07:00 15:00 23:00 07:00 15:00 23:00 Intake Total 2184 ml 480 ml 240 ml Output Total 400 ml 600 ml 300 ml 400 ml Balance 1784 ml -120 ml -60 ml -400 ml Intake Oral 0 ml 480 ml 240 ml IV Total 2184 ml Output Urine Total 400 ml 600 ml 300 ml 400 ml # Voids 1 # Bowel Movements 0 0 Result Diagram: 04/20/16 0603 Objective Remarks LLE: pain in hip with ROM. NVI distally with good cap refill LUE: + coap splint. good ROM of fingers. NVI to median/ulnar/radial nerve Assessment & Plan Assessment and Plan 1) Left Acetabulum fx 2) Left Humerus Fx -Nothing by mouth -sign consents -surgery today with Dr. Gillespie -tripp lovenox -type and screen 4 units TAM ADKINS PA-C Apr 22, 2016 07:16
[2016-04-22 08:00] VITALS: BP 152/73; PULSE 93; RESP 18; TEMP 98.7; O2SAT 98
[2016-04-22] MEDS ORDERED: DEXTROSE 50% IN WATER 50 ML VIAL(D50) IV PUSH PRN (08:00)
[2016-04-22] MEDS ORDERED: GLUCAGON 1 MG/ML VIAL OTHER PRN (08:00)
[2016-04-22] MEDS ORDERED: SODIUM CHLORIDE 0.9% IV SCH (08:15)
[2016-04-22] MEDS ORDERED: TRANEXAMIC ACID IV SCH (08:15)
[2016-04-22] MEDS ORDERED: ceFAZolin 2 GM PREMIX 50 ML ONE (09:02)
[2016-04-22] MEDS ORDERED: ceFAZolin INJ 1,000 MG VIAL ONE (09:02)
[2016-04-22] MEDS ORDERED: HEPARIN SODIUM - SQ 10,000 UNITS/ML VIAL ONE (09:02)
[2016-04-22] MEDS ORDERED: VANCOMYCIN HCL 1000 MG VIAL ONE (09:02)
[2016-04-22] MEDS ORDERED: GENTAMICIN SULFATE 80 MG/2 ML VIAL ONE (09:03)
[2016-04-22] MEDS ORDERED: SODIUM CHLOR 0.9% 250 ML INJ 250 ML ONE (09:03)
[2016-04-22] MEDS: DOCUSATE SODIUM 100 MG CAP PO SCH ×2 (09:06→21:44)
[2016-04-22] MEDS: LISINOPRIL 20 MG TAB PO SCH (09:06)
[2016-04-22] MEDS: HYDROCHLOROTHIAZIDE 12.5 MG CAP PO SCH (09:06)
[2016-04-22] MEDS: SODIUM CHLORIDE 0.9% FLUSH 5 ML FLUSH IVF SCH ×2 (09:06→21:43)
[2016-04-22] MEDS: PANTOPRAZOLE SOD 40 MG DELAYED RELEASE TAB PO SCH (09:06)
[2016-04-22] MEDS ORDERED: METOCLOPRAMIDE HCL 10 MG/2 ML VIAL ONE (09:53)
[2016-04-22] MEDS ORDERED: FAMOTIDINE 20 MG/2 ML VIAL ONE (09:53)
[2016-04-22] MEDS ORDERED: MIDAZOLAM HCL 2 MG/2 ML VIAL ONE (09:57)
[2016-04-22] MEDS ORDERED: DEXAMETHASONE SOD PHOS 4 MG/ML VIAL ONE (09:57)
[2016-04-22] MEDS ORDERED: PROPOFOL 200 MG/20 ML AMP IV ONE (10:30)
[2016-04-22] MEDS ORDERED: ONDANSETRON HCL 4 MG/2 ML VIAL IV PUSH ONE (10:30)
[2016-04-22] MEDS ORDERED: NEOSTIGMINE 3 MG/3 ML SYR IV ONE (10:30)
[2016-04-22] MEDS ORDERED: PHENYLEPH/NS 1000 MCG/10 ML SYR IV ONE (10:30)
[2016-04-22] MEDS: INSULIN NovoLIN REGULAR SUPPLEMENTAL SCALE SQ SCH ×3 (11:00→21:42)
[2016-04-22] MEDS ORDERED: VANCOMYCIN HCL 1000 MG VIAL OTHER ONE (11:03)
[2016-04-22] MEDS ORDERED: ceFAZolin INJ 1,000 MG VIAL IV ONE (11:06)
[2016-04-22 11:17] LABS: BLOOD GAS BASE EXCESS 2.3 mmol/L (-2-2); BLOOD GAS CARBOXYHEMOGLOBIN 1.7 % (0-4); BLOOD GAS HCO3 27 mmol/L (22-26); BLOOD GAS METHEMOGLOBIN 1.3 % (0-2); BLOOD GAS O2 HGB SATURATION 97 % (90-100); BLOOD GAS OXYGEN CONTENT 20.4 Vol % (12.0-20.0); BLOOD GAS PCO2 49 mmHg (38-42); BLOOD GAS PO2 284 mmHg (61-120); BLOOD GAS TOTAL HGB 14.5 G/DL (12.0-16.0); CRITICAL VALUE NO; DRAW SITE ART LINE; FIO2 100 %; OXYGEN DEVICE VENTILATOR; STAT YES; TEMP CORR TO 98.6
[2016-04-22] MEDS ORDERED: GENTAMICIN SULFATE 80 MG/2 ML VIAL XX ONE (11:22)
[2016-04-22] MEDS ORDERED: PARENTERAL ELECTROLYTES PH 7.4 1000 ML BAG IV ONE (12:00)
[2016-04-22 13:26] LABS: BLOOD GAS BASE EXCESS 0.3 mmol/L (-2-2); BLOOD GAS CARBOXYHEMOGLOBIN 2.1 % (0-4); BLOOD GAS HCO3 24 mmol/L (22-26); BLOOD GAS METHEMOGLOBIN 1.4 % (0-2); BLOOD GAS O2 HGB SATURATION 95 % (90-100); BLOOD GAS OXYGEN CONTENT 16.9 Vol % (12.0-20.0); BLOOD GAS PCO2 39 mmHg (38-42); BLOOD GAS PO2 129 mmHg (61-120); BLOOD GAS TOTAL HGB 12.5 G/DL (12.0-16.0); CRITICAL VALUE NO; OXYGEN DEVICE VENTILATOR; TEMP CORR TO 98.6
[2016-04-22 13:27] LABS: DRAW SITE ART LINE; FIO2 100 %; STAT YES
[2016-04-22 13:53] LABS: HEMATOCRIT 33.4 % (39.0-51.0); REVIEW FLAG FINAL
[2016-04-22] MEDS ORDERED: MORPHINE SULFATE 4 MG/ML INJ IV PUSH PRN (15:00)
[2016-04-22] MEDS ORDERED: DO NOT ADM ANY ANTICOAGULANT DRUGS XX PRN (15:30)
[2016-04-22] MEDS ORDERED: *RESP: ALBUTEROL 2.5 MG/3 ML NEB (PRN) PERIprocedural Use ONLY NEB ONE ×2 (15:46→18:19)
[2016-04-22 15:59] LABS: HEMATOCRIT 36.3 % (39.0-51.0); REVIEW FLAG FINAL
--- NOTE | 2016-04-22 16:00 | RADRPT ---
EXAM DATE/TIME: 04/22/2016 13:35 [facility] COMPARISON: HUMERUS LEFT (MIN 2VWS), April 21, 2016, 11:19. INDICATIONS : ORIF left humerus. MEDICAL HISTORY : None. SURGICAL HISTORY : None. ENCOUNTER: Subsequent ACUITY: 3 days PAIN SCORE: Non-responsive. LOCATION: Left humerus. FINDINGS: Two view examination of the left humerus demonstrates open reduction and internal fixation of an angu lated mid humeral shaft fracture. The fracture has been stabilized with an extra medullary plate and anchoring screws. There is complete reduction of the angulation and good position of the fracture fra gments. CONCLUSION: Satisfactory appearance of the left humerus status post ORIF. Hermes Simon MD on April 22, 2016 at 15:58 Board Certified Radiologist. This report was verified electronically.
--- NOTE | 2016-04-22 16:00 | RADRPT ---
EXAM DATE/TIME: 04/22/2016 13:35 [facility] COMPARISON: CT 3D/SPECIAL RECONSTRUCTION, April 21, 2016, 6:45. INDICATIONS : ORIF left acetabulum and left pelvic crest. MEDICAL HISTORY : None. SURGICAL HISTORY : None. ENCOUNTER: Subsequent ACUITY: 3 days PAIN SCORE: Non-responsive. LOCATION: Left pelvis. FINDINGS: Examination of the pelvis demonstrates postsurgical changes following open reduction and internal fix ation of left hemipelvic fractures. The inferior margin of the diastatic left iliac fracture was stabilized an additional screw. A diastatic fracture of the left iliac wing has been reduced and fixated with 3 screws. Left superior pubic ramus fracture extending into the anterior column of the acetabulum has been stab ilized by a plate and anchoring screws. Good fracture fragment alignment is noted. The CONCLUSION: Satisfactory appearance of the left hemipelvis following ORIF as described. Hermes Simon MD on April 22, 2016 at 15:54 Board Certified Radiologist. This report was verified electronically.
[2016-04-22 16:10] VITALS: O2SAT 92
[2016-04-22] MEDS ORDERED: fentaNYL CITRATE 250 MCG/5 ML AMP ONE (16:11)
--- NOTE | 2016-04-22 16:16 | HHI.PR ---
Subjective Subjective Notes To OR today for left humerus and left acetabulum repair Complaints of hip pain Objective Vitals/I&O Vital Signs Date Time Temp Pulse Resp B/P Pulse Ox O2 Delivery O2 Flow Rate FiO2 04/22/16 08:00 98.7 93 18 152/73 98 04/21/16 09:35 Nasal Cannula 2.00 Labs Laboratory Tests Test 04/22/16 04/22/16 04/22/16 04/22/16 07:50 11:07 13:16 13:21 Blood Type O POSITIVE Antibody Screen NEGATIVE Crossmatch Leukocyte-Reduced Red Blood Cells Blood Bank Comment Blood Gas Puncture Site ART LINE ART LINE Blood Gas Patient Temperature 98.6 98.6 Blood Gas HCO3 27 24 Blood Gas Base Excess 2.3 0.3 Blood Gas Oxygen Saturation 97 95 Arterial Blood pH 7.36 7.41 Arterial Blood Partial 49 39 Pressure CO2 Arterial Blood Partial 284 129 Pressure O2 Arterial Blood Oxygen Content 20.4 16.9 Arterial Blood 1.7 2.1 Carboxyhemoglobin Arterial Blood Methemoglobin 1.3 1.4 Blood Gas Hemoglobin 14.5 12.5 Oxygen Delivery Device VENTILATOR VENTILATOR Blood Gas Ventilator Setting UNKNOWN UNKNOWN Blood Gas Inspired Oxygen 100 100 Hemoglobin 11.3 Hematocrit 33.4 Test 04/22/16 15:52 Hemoglobin 12.1 Hematocrit 36.3 Radiology Last Impressions Pelvis X-Ray 04/19/161622 Signed Impressions: Service Date/Time: Tuesday, April 19, 2016 16:07 - CONCLUSION: [facility] COMPARISON: No previous studies available for comparison. INDICATIONS : Trauma alert. Fall from ladder today MEDICAL HISTORY : None. SURGICAL HISTORY : None. ENCOUNTER : Initial ACUITY: 1 day PAIN SCORE: Non-responsive. LOCATION: Pelvis FINDINGS: A single frontal view of the pelvis demonstrates no evidence of fracture. The bony pelvic ring is intact. Bony mineralization is normal. The soft tissues are intact. CONCLUSION: Intact pelvis Pascual Lizama MD Head CT 04/19/161622 Signed Impressions: Service Date/Time: Tuesday, April 19, 2016 16:36 - CONCLUSION: Normal examination. Pascual Lizama MD Chest X-Ray 04/19/161622 Signed Impressions: Service Date/Time: Tuesday, April 19, 2016 16:07 - CONCLUSION: No acute disease. Pascual Lizama MD Chest CT 04/19/161622 Signed Impressions: Service Date/Time: Tuesday, April 19, 2016 16:45 - CONCLUSION: Negative examination other than appreciation of a slightly angulated offset fracture mid left humerus Pascual Lizama MD Cervical Spine CT 04/19/16 1623 Signed Impressions: Service Date/Time: Tuesday, April 19, 2016 16:36 - CONCLUSION: No acute bony injury. Degenerative changes as described Pascual Lizama MD Abdomen/Pelvis CT 04/19/16 1623 Signed Impressions: Service Date/Time: Tuesday, April 19, 2016 16:45 - CONCLUSION: Left acetabular fracture as described above which is an extension from the left iliac wing fracture. No dislocation. Intra-abdominal pelvic contents are negative. Pascual Lizama MD Wrist X-Ray 04/19/16 0000 Signed Impressions: Service Date/Time: Tuesday, April 19, 2016 17:40 - CONCLUSION: Abnormal appearance of base of the first metacarpal multangular articulation which could represent occult bony injury or dislocation on these limited views. Further evaluation with multi-obliquity plain film radiography of the wrist may be wording of consideration or CT scan Pascual Lizama MD Humerus X-Ray 04/19/16 0000 Signed Impressions: Service Date/Time: Tuesday, April 19, 2016 16:07 - CONCLUSION: Negative exam Pascual Lizama MD ADDENDUM: Incoordination and review of CT scan of thorax what appears to represent possible overlying external wrap or soft tissue across the mid humerus actually represents a overlying fracture. Pascual Lizama MD Narrative Exam GENERAL: 71-year-old well-nourished, well developed male lying in bed. SKIN: Warm and dry. HEAD: Atraumatic. Normocephalic. EYES: PERRL. ENT: No nasal bleeding or discharge. Mucous membranes pink and moist. NECK: Trachea midline. No JVD. CARDIOVASCULAR: Regular rate and rhythm. RESPIRATORY: No accessory muscle use. Lungs clear to auscultation. Breath sounds equal bilaterally. GASTROINTESTINAL: Abdomen soft, non-tender, nondistended. + BS. MUSCULOSKELETAL: Extremities without cyanosis, or edema. LEFT arm with soft splint and sling in place. NEUROLOGICAL: Awake and alert. Normal speech. A/P Assessment and Plan [place]: Patient fell approx 10 feet while climbing a ladder and landed in the grass on his LEFT side. No LOC, GCS 15. Initial complaints of LEFT arm and hip pain. INJURIES: LEFT humerus fx LEFT acetabular fx extending to LEFT iliac wing First metacarpal occult bony injury vs dislocation PMHx: HTN Diet: Regular, tolerating. Pulmonary: IS, encouraged patient use. Pain: Percocet, Morphine IV, still painful. Activity: BR, PT, OT evaluating. NWB LLE, TTWB LLE. Wheelchair training. GI: Protonix PO Bowel: Colace, MOM. No BM yet. DVT: Lovenox, SCD's Left arm and left acetabulum fracture repair in OR today. Pain control. Hx of HTN. Patient unsure of home dosage of lisinopril or HCTZ. Plan of care discussed with patient at bedside. Case management consulted for discharge planning. C versus inpatient rehabilitation. Disposition will depend on patient progress. Garth Flor Apr 22, 2016 16:16
[2016-04-22] MEDS: LACTATED RINGER'S 1000 ML INJ 1,000 ML IV SCH (16:30)
--- NOTE | 2016-04-22 16:49 | RADRPT ---
EXAM DATE/TIME: 04/22/2016 16:10 [facility] COMPARISON: CHEST SINGLE AP, April 19, 2016, 16:07. INDICATIONS : Central line placement, post op left shoulder MEDICAL HISTORY : None. SURGICAL HISTORY : left shoulder ENCOUNTER: Initial ACUITY: 1 day PAIN SCORE: Non-responsive. LOCATION: Bilateral chest FINDINGS: Portable AP view of the chest demonstrates a normal size cardiac silhouette. Lungs are underinflated and there is atelectasis at the bases. Right IJ line is present with distal tip in the superior vena cava. No pneumothorax is visualized. There is a partially visualized left mid humerus side plate with interlocking screws and overlying skin jayne. CONCLUSION: Right IJ central line distal tip is in the SVC. No pneumothorax is visualized. Bienvenido Soto MD on April 22, 2016 at 16:46 Board Certified Radiologist. This report was verified electronically.
[2016-04-22] MEDS ORDERED: HYDR-3366 PO (18:47)
[2016-04-22] MEDS ORDERED: XARE10TA PO (18:47)
[2016-04-22] MEDS ORDERED: WHEEMIS3 (18:49)
[2016-04-22] MEDS ORDERED: RESP: ALBUTEROL 2.5 MG/3 ML NEB (PRN) INH (19:45)
[2016-04-22] MEDS: ceFAZolin 2 GM PREMIX 50 ML IV SCH (20:29)
[2016-04-22 21:31] VITALS: BP_SYST 98; PULSE 64; RESP 18; TEMP 97.9; O2SAT 96
[2016-04-22] MEDS: oxyCODONE/ACETAMINOPHEN 5 MG/325 MG TAB PO PRN (21:42)
[2016-04-22 21:47] VITALS: O2SAT 90
[2016-04-22] MEDS: VANCOMYCIN INJ 1,000 MG in SODIUM CHLOR 0.9% 250 ML INJ 250 ML IV SCH (23:00)
[2016-04-23] VITALS (7 sets, daily range): BP systolic 104–153; BP diastolic 59–72; PULSE 64–90; RESP 18; TEMP 97.6–99; O2SAT 91–96
[2016-04-23] MEDS: ceFAZolin 2 GM PREMIX 50 ML IV SCH ×3 (03:00→17:04)
--- NOTE | 2016-04-23 06:41 | PD.ORT.PN ---
Subjective Subjective Remarks Resting comfortably with pain controlled Objective Vitals Vital Signs Date Time Temp Pulse Resp B/P Pulse Ox O2 Delivery O2 Flow Rate FiO2 04/23/16 04:47 97.8 85 18 104/66 95 04/23/16 03:15 94 Nasal Cannula 4.00 04/23/16 01:02 97.9 64 18 107/60 96 04/22/16 21:47 90 Nasal Cannula 4.00 04/22/16 21:31 97.9 64 18 98/ 96 04/22/16 19:00 98.1 101 15 130/55 97 Nasal Cannula 4 04/22/16 18:45 104 15 122/60 97 Nasal Cannula 4 04/22/16 18:30 103 17 128/75 97 Nasal Cannula 4 04/22/16 18:15 104 17 104/56 97 Simple Mask 6 04/22/16 17:45 107 16 122/60 97 Bi-Pap 04/22/16 17:15 111 14 122/62 90 Bi-Pap 04/22/16 17:00 110 14 137/69 90 Bi-Pap 04/22/16 16:45 112 12 176/74 92 Bi-Pap 04/22/16 16:30 110 14 147/82 87 Bi-Pap 04/22/16 16:15 114 12 174/94 86 Bi-Pap 04/22/16 16:12 98.3 115 22 181/104 88 Simple Mask 6 04/22/16 16:10 92 35 04/22/16 08:00 98.7 93 18 152/73 98 I/O 04/22/16 04/22/16 04/22/16 04/23/16 04/23/16 04/23/16 07:00 15:00 23:00 07:00 15:00 23:00 Intake Total 3300 ml Output Total 400 ml 1905 ml Balance -400 ml 1395 ml IV Total 300 ml Other 3000 ml Output Urine Total 400 ml 875 ml Drainage Total 30 ml Estimated Blood Loss 1000 ml # Voids 1 Result Diagram: 04/22/16 1552 Objective Remarks Pelvis: Incisions clean dry and intact with drain intact. Left lower extremity: Tenderness with movement of hip. No pain with motion of knee or ankle. Distally neurovascularly intact. Strong dorsiflexion plantar flexion of foot Left upper extremity: Clean dry dressings intact with sling in place. Normal pain with elbow motion. Distally intact sensation over the radial ulnar and median nerve distributions with good capillary refills. He is able fully extend his fingers and make a fist Assessment & Plan Assessment and Plan ORIF Left Acetabulum and posterior hemipelvis POD 1 ORIF Left Humerus Fx POD 1 Nonweightbearing left upper extremity, sling when seated Physical therapy for passive range of motion of shoulder and elbow. Active range of motion of wrist and fingers Toe-touch weightbearing left lower extremity with no active leglifts or quad sets Begin daily dressing changes both left upper extremity and left pelvis POD 2 Lovenox then convert to Xarelto after discharge Incentive spirometry SCDs Laxative choice Rehabilitation planning: Would not be safe to go home at this point TAM ADKINS PA-C Apr 23, 2016 06:41
[2016-04-23] MEDS: ACETAMINOPHEN/HYDROcodone 325 MG/10 MG TAB PO PRN ×3 (06:54→23:29)
[2016-04-23] MEDS: MAGNESIUM HYDROXIDE SUSP 30 ML CUP PO PRN (06:57)
--- NOTE | 2016-04-23 07:05 | MP ---
cc: [facility] DATE OF SURGERY 04/22/2016 PREOPERATIVE DIAGNOSES 1. Complex left acetabular fracture. 2. Left humerus shaft fracture. POSTOPERATIVE DIAGNOSES 1. Complex left acetabular fracture. 2. Left humerus shaft fracture SURGEON Noble Gillespie MD ASSISTANTS KATHYA Arciniega PA-C The surgical procedure was assisted by my physician assistants. My PA-C's presence was necessary throughout this case for the manipulation and positioning of the surgical extremity. My PA-C's were assisting me throughout the duration of this procedure. The skill set of a physician blacksmith assistant was medically necessary to complete this procedure. During the surgical case the refresh technician was working at the back table and the physician assistants were directly assisting me. PROCEDURE 1. Open reduction, internal fixation of left acetabulum. 2. Open reduction, internal fixation of left humeral shaft fracture. ESTIMATED BLOOD LOSS 1 liter. ANESTHESIA General. PLAN OF ACTIVITY Toe-touch weightbearing left leg, non-weightbearing left arm. DRAIN A 7-mm JACOB drain to pelvis. DETAILS OF THE PROCEDURE Carlos is a 70-year-old male who was seen and evaluated preoperatively. The patient had a fall resulting in multiple injuries including left humerus fracture and left-sided acetabular fracture. Informed consent was obtained preoperatively. I had a lengthy discussion preoperatively with the patient regarding the risks and benefits of surgery. The risks of surgery including bleeding, infection, injury to arteries, nerves and blood vessels, hip arthritis, need for hip replacement, hip pain, painful hardware as well as medical complications including blood clot, stroke, heart attack and were discussed. All questions were answered. The patient was brought to operating, placed on the OR table. He was given IV sedation and GETA. He was placed on the Jonathan table. The left arm as well as the pelvic region were prepped with alcohol, followed by Hibiclens and draped in the usual sterile fashion. Time-out procedure was performed. He received IV antibiotics prior to incision. The procedure began with a 5-inch incision over the lateral aspect of the left ilium. The subcutaneous tissue was dissected with Bovie. The muscular fascia was elevated off the iliac crest. The iliopsoas muscle was now elevated. The anterior column of the acetabulum was exposed as well as the iliac crest. A second incision was now made over the anterior abdomen. A standard Pfannenstiel approach was utilized. The linea alba was split in line with the fibers. The bladder was protected throughout the procedure. At this point attention was turned to reduction of the fracture. The fracture was visualized along the medial wall of the acetabular first. There was impaction of the articular surface. This was elevated and reduced. A fracture tenaculum was now placed from the sciatic notch across the anterior column. The iliac wing was also manipulated. The fracture was manipulated until reduction was achieved. Excellent reduction was achieved. At this point multiple 3.5 cortical lag screws were placed along the iliac crest. A percutaneous incision was made over the anterior inferior iliac spine. A guide pin for the Synthes 7.3 cannulated screw was placed in a supra-acetabular position across the acetabular fracture. Screw length was measured. Fluoroscopy confirmed appropriate guidepin placement. A 90-mm lag screw was placed. A 10-hole plate was now contoured to fit the pelvic brim. The plate was provisionally held to bone with K-wires. 3.5 cortical screws were used to compress plate to bone. Three screws were placed on each side of the fracture. The K-wires were removed. Final fluoroscopy revealed a well-aligned fracture with well-placed hardware. The incision was thoroughly irrigated. A drain was placed deep. The fascial layers were closed with #1 Vicryl. The subcutaneous tissue was closed with 3-0 Vicryl. The skin was closed with jayne. Next attention was turned to the left arm. A 10-inch incision was made over the anterior aspect of the proximal humerus. The subcutaneous tissue was dissected with Bovie. The cephalic vein was identified. Proximally the deltopectoral interval was opened. Distally the biceps was retracted and brachialis was split. The fracture was visualized. The fracture was now manipulated, fracture keyed into excellent alignment. Multiplanar fluoroscopy confirmed well-aligned fracture. A Synthes nine-holed 4.5 plate was contoured to fit the humerus. The plate was provisionally held to bone with K-wires. 4.5 cortical screws were used to compress plate to bone. Four screws were placed above and below the fracture. Final fluoroscopy revealed excellent alignment of the fracture with well-placed hardware. The fracture was compressed by the screws to the plate. The wound was thoroughly irrigated. The fascia was closed with #1 Vicryl. The subcutaneous tissue was closed with 3-0 Vicryl. The skin was closed with jayne. Sterile dressings were applied. The patient was transferred to Recovery in stable condition. MD DAWN Bobo/GABO /3:06 PM /6:46 AM
[2016-04-23 09:51] LABS: HEMATOCRIT 30.4 % (39.0-51.0); MEAN CELL VOLUME 91.2 FL (80.0-100.0); MEAN CORPUSCULAR HEMOGLOBIN 30.8 PG (27.0-34.0); MEAN CORPUSCULAR HGB CONC 33.7 % (32.0-36.0); PLATELET COUNT 246 TH/MM3 (150-450); RED BLOOD COUNT 3.33 MIL/MM3 (4.50-5.90); RED CELL DISTRIBUTION WIDTH 13.9 % (11.6-17.2); REVIEW FLAG FINAL
[2016-04-23 10:12] LABS: BICARBONATE 30.5 MEQ/L (21.0-32.0)
[2016-04-23] MEDS: FENOFIBRATE 145 MG TAB PO SCH (10:21)
[2016-04-23] MEDS: HYDROCHLOROTHIAZIDE 12.5 MG CAP PO SCH (10:22)
[2016-04-23] MEDS: PANTOPRAZOLE SOD 40 MG DELAYED RELEASE TAB PO SCH (10:23)
[2016-04-23] MEDS: SODIUM CHLORIDE 0.9% FLUSH 5 ML FLUSH IVF SCH ×2 (10:23→23:30)
[2016-04-23] MEDS: DOCUSATE SODIUM 100 MG CAP PO SCH ×2 (10:23→23:30)
[2016-04-23] MEDS: LISINOPRIL 20 MG TAB PO SCH (10:23)
[2016-04-23] MEDS: MORPHINE SULFATE 4 MG/ML INJ IV PRN (10:28)
[2016-04-23] MEDS: VANCOMYCIN INJ 1,000 MG in SODIUM CHLOR 0.9% 250 ML INJ 250 ML IV SCH (10:45)
[2016-04-23] MEDS: INSULIN NovoLIN REGULAR SUPPLEMENTAL SCALE SQ SCH ×3 (11:00→21:00)
[2016-04-23] MEDS: LACTATED RINGER'S 1000 ML INJ 1,000 ML IV SCH (11:00)
[2016-04-23] MEDS ORDERED: BISACODYL 10 MG SUPP RECTAL ONE (12:45)
[2016-04-23] MEDS: ENOXAPARIN SODIUM 30 MG/0.3 ML SYRINGE SQ SCH (14:34)
--- NOTE | 2016-04-23 15:15 | HHI.PR ---
Subjective Subjective Notes S/P ORIF Left Acetabulum and posterior hemipelvis and ORIF Left Humerus Fx Pain controlled Patient said he is afraid to eat because does not want have a bowel movement. Objective Vitals/I&O Vital Signs Date Time Temp Pulse Resp B/P Pulse Ox O2 Delivery O2 Flow Rate FiO2 04/23/16 10:49 91 Nasal Cannula 4.00 04/23/16 08:00 99.0 82 18 153/72 04/22/16 16:10 35 Labs Laboratory Tests Test 04/22/16 04/23/16 15:52 08:40 Hemoglobin 12.1 10.2 Hematocrit 36.3 30.4 White Blood Count 12.0 Red Blood Count 3.33 Mean Corpuscular Volume 91.2 Mean Corpuscular Hemoglobin 30.8 Mean Corpuscular Hemoglobin 33.7 Concent Red Cell Distribution Width 13.9 Platelet Count 246 Mean Platelet Volume 8.2 Sodium Level 139 Potassium Level 4.0 Chloride Level 102 Carbon Dioxide Level 30.5 Anion Gap 7 Blood Urea Nitrogen 36 Creatinine 0.98 Estimat Glomerular Filtration 76 Rate Random Glucose 128 Calcium Level 7.7 Radiology Last Impressions Pelvis X-Ray 04/19/161622 Signed Impressions: Service Date/Time: Tuesday, April 19, 2016 16:07 - CONCLUSION: [facility] COMPARISON: No previous studies available for comparison. INDICATIONS : Trauma alert. Fall from ladder today MEDICAL HISTORY : None. SURGICAL HISTORY : None. ENCOUNTER : Initial ACUITY: 1 day PAIN SCORE: Non-responsive. LOCATION: Pelvis FINDINGS: A single frontal view of the pelvis demonstrates no evidence of fracture. The bony pelvic ring is intact. Bony mineralization is normal. The soft tissues are intact. CONCLUSION: Intact pelvis Pascual Lizama MD Head CT 04/19/161622 Signed Impressions: Service Date/Time: Tuesday, April 19, 2016 16:36 - CONCLUSION: Normal examination. Pascual Lizama MD Chest X-Ray 04/19/161622 Signed Impressions: Service Date/Time: Tuesday, April 19, 2016 16:07 - CONCLUSION: No acute disease. Pascual Lizama MD Chest CT 04/19/161622 Signed Impressions: Service Date/Time: Tuesday, April 19, 2016 16:45 - CONCLUSION: Negative examination other than appreciation of a slightly angulated offset fracture mid left humerus Pascual Lizama MD Cervical Spine CT 1/7/17 1623 Signed Impressions: Service Date/Time: Tuesday, April 19, 2016 16:36 - CONCLUSION: No acute bony injury. Degenerative changes as described Pascual Lizama MD Abdomen/Pelvis CT 04/19/16 1623 Signed Impressions: Service Date/Time: Tuesday, April 19, 2016 16:45 - CONCLUSION: Left acetabular fracture as described above which is an extension from the left iliac wing fracture. No dislocation. Intra-abdominal pelvic contents are negative. Pascual Lizama MD Wrist X-Ray 04/19/16 0000 Signed Impressions: Service Date/Time: Tuesday, April 19, 2016 17:40 - CONCLUSION: Abnormal appearance of base of the first metacarpal multangular articulation which could represent occult bony injury or dislocation on these limited views. Further evaluation with multi-obliquity plain film radiography of the wrist may be wording of consideration or CT scan Pascual Lizama MD Humerus X-Ray 04/19/16 0000 Signed Impressions: Service Date/Time: Tuesday, April 19, 2016 16:07 - CONCLUSION: Negative exam Pascual Lizama MD ADDENDUM: Incoordination and review of CT scan of thorax what appears to represent possible overlying external wrap or soft tissue across the mid humerus actually represents a overlying fracture. Pascual Lizama MD Narrative Exam GENERAL: 71-year-old well-nourished, well developed male lying in bed. SKIN: Warm and dry. HEAD: Atraumatic. Normocephalic. EYES: PERRL. ENT: No nasal bleeding or discharge. Mucous membranes pink and moist. NECK: Trachea midline. No JVD. CARDIOVASCULAR: Regular rate and rhythm. RESPIRATORY: No accessory muscle use. Lungs clear to auscultation. Breath sounds equal bilaterally. GASTROINTESTINAL: Abdomen soft, non-tender, nondistended. + BS. MUSCULOSKELETAL: Extremities without cyanosis, or edema. LEFT arm with soft splint and sling in place. NEUROLOGICAL: Awake and alert. Normal speech. A/P Assessment and Plan [place]: Patient fell approx 10 feet while climbing a ladder and landed in the grass on his LEFT side. No LOC, GCS 15. Initial complaints of LEFT arm and hip pain. INJURIES: LEFT humerus fx LEFT acetabular fx extending to LEFT iliac wing First metacarpal occult bony injury vs dislocation 04/22: ORIF Left Acetabulum and posterior hemipelvis ORIF Left Humerus Fx PMHx: HTN Diet: Regular, poor appetite. Pulmonary: IS, encouraged patient use. Pain: Percocet, Morphine IV, pain controlled. Activity: BR, PT, OT evaluating. NWB LLE, TTWB LLE. Wheelchair training. GI: Protonix PO Bowel: Colace, MOM. No BM yet. Dulcolax DE 1. DVT: Lovenox, SCD's Patient educated on importance of nutrition for healing process takes place. Also educated on importance of taking bowel regimen as he is experiencing constipation from narcotic use. DC [facility]. Ortho cleared for discharge. Patient will need inpatient rehabilitation versus SNF placement. Case management assisting with placement. [facility] evaluating. Plan to discharge patient in a.m. Plan of care discussed with patient at bedside. Garth Flor Apr 23, 2016 15:15
[2016-04-24 00:10] VITALS: BP 116/58; PULSE 86; RESP 19; TEMP 98.2; O2SAT 93
[2016-04-24] MEDS: ENOXAPARIN SODIUM 30 MG/0.3 ML SYRINGE SQ SCH ×2 (01:20→12:53)
[2016-04-24] MEDS: ceFAZolin 2 GM PREMIX 50 ML IV SCH ×2 (01:20→10:47)
--- NOTE | 2016-04-24 06:53 | PD.ORT.PN ---
Subjective Subjective Remarks POD 2 s/p ORIF left humerus and left acetabulum doing well. reports out of bed with therapy yesterday. pain controlled Objective Vitals Vital Signs Date Time Temp Pulse Resp B/P Pulse Ox O2 Delivery O2 Flow Rate FiO2 04/24/16 00:10 98.2 86 19 116/58 93 04/23/16 20:10 98.6 90 18 109/59 95 04/23/16 16:00 97.6 83 18 137/64 96 04/23/16 12:00 98.9 81 18 140/65 94 04/23/16 10:49 91 Nasal Cannula 4.00 04/23/16 10:15 95 Nasal Cannula 4.00 04/23/16 08:00 99.0 82 18 153/72 91 I/O 04/23/16 04/23/16 04/23/16 04/24/16 04/24/16 04/24/16 07:00 15:00 23:00 07:00 15:00 23:00 Intake Total 1280 ml 480 ml Output Total 790 ml Balance 1280 ml -310 ml Intake Oral 480 ml 480 ml IV Total 800 ml Output Urine Total 750 ml Drainage Total 40 ml # Bowel Movements 0 Result Diagram: 04/23/16 0840 04/23/16 0840 Objective Remarks Pelvis: Incisions clean dry and intact with drain intact. Left lower extremity: Tenderness with movement of hip. No pain with motion of knee or ankle. Distally neurovascularly intact. Strong dorsiflexion plantar flexion of foot Left upper extremity: Clean dry dressings intact with sling in place. Normal pain with elbow motion. Distally intact sensation over the radial ulnar and median nerve distributions with good capillary refills. He is able fully extend his fingers and make a fist Assessment & Plan Assessment and Plan 1) ORIF Left Acetabulum and posterior hemipelvis POD 2 2) ORIF Left Humerus Fx POD 2 Nonweightbearing left upper extremity, sling when seated Physical therapy for passive range of motion of shoulder and elbow. Active range of motion of wrist and fingers Toe-touch weightbearing left lower extremity with no active leglifts or quad sets Begin daily dressing changes both left upper extremity and left pelvis POD 2 Lovenox then convert to Xarelto after discharge Incentive spirometry SCDs Laxative choice Rehabilitation planning: plan for DC to rehab when arranged f/u with [facility] or [facility] in 2 weeks Gamaliel Wallace Apr 24, 2016 06:53
[2016-04-24] MEDS: INSULIN NovoLIN REGULAR SUPPLEMENTAL SCALE SQ SCH ×4 (07:00→21:00)
[2016-04-24 08:00] VITALS: BP 142/71; PULSE 90; RESP 18; TEMP 97.4; O2SAT 94
[2016-04-24] MEDS ORDERED: LISI-515 PO (08:36)
[2016-04-24] MEDS ORDERED: DOCU1CAP39 PO (08:36)
[2016-04-24] MEDS ORDERED: HYDR12.57 PO (08:36)
[2016-04-24] MEDS: PANTOPRAZOLE SOD 40 MG DELAYED RELEASE TAB PO SCH (10:46)
[2016-04-24] MEDS: SODIUM CHLORIDE 0.9% FLUSH 5 ML FLUSH IVF SCH ×2 (10:46→22:58)
[2016-04-24] MEDS: LISINOPRIL 20 MG TAB PO SCH (10:46)
[2016-04-24] MEDS: HYDROCHLOROTHIAZIDE 12.5 MG CAP PO SCH (10:46)
[2016-04-24] MEDS: DOCUSATE SODIUM 100 MG CAP PO SCH ×2 (10:46→22:57)
[2016-04-24] MEDS: FENOFIBRATE 145 MG TAB PO SCH (10:46)
[2016-04-24 11:36] VITALS: BP 139/66; PULSE 84; RESP 19; TEMP 98; O2SAT 96
[2016-04-24 15:52] VITALS: BP 148/76; PULSE 96; RESP 19; TEMP 98.7; O2SAT 96
--- NOTE | 2016-04-24 16:22 | HHI.PR ---
Subjective Subjective Notes Pain controlled. Awaiting rehabilitation placement Objective Vitals/I&O Vital Signs Date Time Temp Pulse Resp B/P Pulse Ox O2 Delivery O2 Flow Rate FiO2 04/24/16 15:52 98.7 96 19 148/76 96 04/24/16 10:55 Nasal Cannula 4.00 04/22/16 16:10 35 Labs Laboratory Tests Test 04/22/16 04/22/16 04/23/16 07:50 13:16 08:40 Blood Type O POSITIVE Antibody Screen NEGATIVE Crossmatch Leukocyte-Reduced Red Blood Cells Blood Bank Comment Blood Gas Puncture Site ART LINE Blood Gas Patient Temperature 98.6 Blood Gas HCO3 24 mmol/L Blood Gas Base Excess 0.3 mmol/L Blood Gas Oxygen Saturation 95 % Arterial Blood pH 7.41 Arterial Blood Partial 39 mmHg Pressure CO2 Arterial Blood Partial 129 mmHg Pressure O2 Arterial Blood Oxygen Content 16.9 Vol % Arterial Blood 2.1 % Carboxyhemoglobin Arterial Blood Methemoglobin 1.4 % Blood Gas Hemoglobin 12.5 G/DL Oxygen Delivery Device VENTILATOR Blood Gas Ventilator Setting UNKNOWN Blood Gas Inspired Oxygen 100 % White Blood Count 12.0 TH/MM3 Red Blood Count 3.33 MIL/MM3 Hemoglobin 10.2 GM/DL Hematocrit 30.4 % Mean Corpuscular Volume 91.2 FL Mean Corpuscular Hemoglobin 30.8 PG Mean Corpuscular Hemoglobin 33.7 % Concent Red Cell Distribution Width 13.9 % Platelet Count 246 TH/MM3 Mean Platelet Volume 8.2 FL Sodium Level 139 MEQ/L Potassium Level 4.0 MEQ/L Chloride Level 102 MEQ/L Carbon Dioxide Level 30.5 MEQ/L Anion Gap 7 MEQ/L Blood Urea Nitrogen 36 MG/DL Creatinine 0.98 MG/DL Estimat Glomerular Filtration 76 ML/MIN Rate Random Glucose 128 MG/DL Calcium Level 7.7 MG/DL Radiology Last Impressions Pelvis X-Ray 04/19/16 1623 Signed Impressions: Service Date/Time: Tuesday, April 19, 2016 16:07 - CONCLUSION: [facility] COMPARISON: No previous studies available for comparison. INDICATIONS : Trauma alert. Fall from ladder today MEDICAL HISTORY : None. SURGICAL HISTORY : None. ENCOUNTER : Initial ACUITY: 1 day PAIN SCORE: Non-responsive. LOCATION: Pelvis FINDINGS: A single frontal view of the pelvis demonstrates no evidence of fracture. The bony pelvic ring is intact. Bony mineralization is normal. The soft tissues are intact. CONCLUSION: Intact pelvis Pascual Lizama MD Head CT 04/19/16 162 Signed Impressions: Service Date/Time: Tuesday, April 19, 2016 16:36 - CONCLUSION: Normal examination. Pascual Lizama MD Chest X-Ray 04/19/16 162 Signed Impressions: Service Date/Time: Tuesday, April 19, 2016 16:07 - CONCLUSION: No acute disease. Pascual Lizama MD Chest CT 04/19/16 162 Signed Impressions: Service Date/Time: Tuesday, April 19, 2016 16:45 - CONCLUSION: Negative examination other than appreciation of a slightly angulated offset fracture mid left humerus Pascual Lizama MD Cervical Spine CT 04/19/16 162 Signed Impressions: Service Date/Time: Tuesday, April 19, 2016 16:36 - CONCLUSION: No acute bony injury. Degenerative changes as described Pascual Lizama MD Abdomen/Pelvis CT 04/19/161622 Signed Impressions: Service Date/Time: Tuesday, April 19, 2016 16:45 - CONCLUSION: Left acetabular fracture as described above which is an extension from the left iliac wing fracture. No dislocation. Intra-abdominal pelvic contents are negative. Pascual Lizama MD Wrist X-Ray 04/19/16 0000 Signed Impressions: Service Date/Time: Tuesday, April 19, 2016 17:40 - CONCLUSION: Abnormal appearance of base of the first metacarpal multangular articulation which could represent occult bony injury or dislocation on these limited views. Further evaluation with multi-obliquity plain film radiography of the wrist may be wording of consideration or CT scan Pascual Lizama MD Humerus X-Ray 04/19/16 0000 Signed Impressions: Service Date/Time: Tuesday, April 19, 2016 16:07 - CONCLUSION: Negative exam Pascual Lizama MD ADDENDUM: Incoordination and review of CT scan of thorax what appears to represent possible overlying external wrap or soft tissue across the mid humerus actually represents a overlying fracture. Pascual Lizama MD Narrative Exam GENERAL: 71-year-old well-nourished, well developed male lying in bed. SKIN: Warm and dry. HEAD: Atraumatic. Normocephalic. EYES: PERRL. ENT: No nasal bleeding or discharge. Mucous membranes pink and moist. NECK: Trachea midline. No JVD. CARDIOVASCULAR: Regular rate and rhythm. RESPIRATORY: No accessory muscle use. Lungs clear and diminished to auscultation. Breath sounds equal bilaterally. GASTROINTESTINAL: Abdomen soft, non-tender, nondistended. + BS. MUSCULOSKELETAL: Extremities without cyanosis, or edema. LEFT arm with soft splint and sling in place. NEUROLOGICAL: Awake and alert. Normal speech. A/P Assessment and Plan [place]: Patient fell approx 10 feet while climbing a ladder and landed in the grass on his LEFT side. No LOC, GCS 15. Initial complaints of LEFT arm and hip pain. INJURIES: LEFT humerus fx LEFT acetabular fx extending to LEFT iliac wing First metacarpal occult bony injury vs dislocation 04/22: ORIF Left Acetabulum and posterior hemipelvis ORIF Left Humerus Fx PMHx: HTN Diet: Regular, poor appetite. Pulmonary: IS, encouraged patient use. Pain: Percocet, pain controlled. Activity: BR, PT, OT evaluating. NWB LLE, TTWB LLE. Wheelchair training. GI: Protonix PO Bowel: Colace, MOM. LBM 04/23 DVT: Lovenox, SCD's Wean FiO2 for SPO2 greater than 92% Patient educated on importance of nutrition for healing process takes place. Also educated on importance of taking bowel regimen as he is experiencing constipation from narcotic use. Ortho cleared for discharge. Discharge placed to inpatient rehabilitation. Insurance denied [facility] admission. CM arranging for SNF placement. Plan of care discussed with patient at bedside. Patient is clear from Trauma surgery standpoint to safely discharge to rehabilitation when arrangements made. Attending Statement Patient improved and will be discharged to the floor today The exam, history, and the medical decision-making described in the above note were completed with the assistance of the mid-level provider. I reviewed and agree with the findings presented. I attest that I had a [id number] encounter with the patient on the same day, and personally performed and documented my assessment and findings in the medical record. Critical care time 35 minutes. Garth Flor Apr 24, 2016 16:22 Diane Hinton MD Apr 27, 2016 11:32
[2016-04-24] MEDS: ACETAMINOPHEN/HYDROcodone 325 MG/10 MG TAB PO PRN ×2 (19:48→23:11)
[2016-04-24 20:10] VITALS: BP 138/63; PULSE 85; RESP 20; TEMP 98.7; O2SAT 94
[2016-04-25] VITALS (7 sets, daily range): BP systolic 121–144; BP diastolic 67–80; PULSE 83–98; RESP 18–20; TEMP 97–99.5; O2SAT 93–97
[2016-04-25] MEDS: ENOXAPARIN SODIUM 30 MG/0.3 ML SYRINGE SQ SCH ×2 (01:57→13:43)
--- NOTE | 2016-04-25 06:45 | PD.ORT.PN ---
Subjective Subjective Remarks Resting comfortably with pain controlled Objective Vitals Vital Signs Date Time Temp Pulse Resp B/P Pulse Ox O2 Delivery O2 Flow Rate FiO2 04/25/16 00:12 97.0 86 20 121/67 93 04/24/16 20:10 98.7 85 20 138/63 94 04/24/16 18:46 Nasal Cannula 4.00 04/24/16 18:12 Nasal Cannula 4.00 04/24/16 15:52 98.7 96 19 148/76 96 04/24/16 11:36 98.0 84 19 139/66 96 04/24/16 10:55 Nasal Cannula 4.00 04/24/16 08:00 97.4 90 18 142/71 94 I/O 04/24/16 04/24/16 04/24/16 04/25/16 04/25/16 04/25/16 07:00 15:00 23:00 07:00 15:00 23:00 Intake Total 2131 ml 240 ml 360 ml Output Total 10 ml 620 ml 400 ml 625 ml Balance -10 ml 1511 ml -160 ml -265 ml Intake Oral 720 ml 240 ml 360 ml IV Total 1411 ml Output Urine Total 620 ml 400 ml 625 ml Drainage Total 10 ml # Bowel Movements 0 0 0 Result Diagram: 04/23/1640 04/23/1640 Objective Remarks Pelvis: Incisions clean dry and intact with drain intact. Left lower extremity: Tenderness with movement of hip. No pain with motion of knee or ankle. Distally neurovascularly intact. Strong dorsiflexion plantar flexion of foot Left upper extremity: Clean dry dressings intact with sling in place. Normal pain with elbow motion. Distally intact sensation over the radial ulnar and median nerve distributions with good capillary refills. He is able fully extend his fingers and make a fist Assessment & Plan Assessment and Plan 1) ORIF Left Acetabulum and posterior hemipelvis POD 3 2) ORIF Left Humerus Fx POD 3 Nonweightbearing left upper extremity, sling when seated Physical therapy for passive range of motion of shoulder and elbow. Active range of motion of wrist and fingers Toe-touch weightbearing left lower extremity with no active leglifts or quad sets daily dressing changes both left upper extremity and left pelvis Lovenox then convert to Xarelto after discharge Incentive spirometry SCDs Rehabilitation planning: plan for DC to rehab when arranged f/u with [facility] in 2 weeks TAM ADKINS PA-C Apr 25, 2016 06:45
[2016-04-25] MEDS: INSULIN NovoLIN REGULAR SUPPLEMENTAL SCALE SQ SCH ×4 (07:00→23:25)
--- NOTE | 2016-04-25 08:06 | RADRPT ---
EXAM DATE/TIME: 04/25/2016 06:51 [facility] COMPARISON: CHEST SINGLE AP, April 22, 2016, 16:10. INDICATIONS : Short of breath, cough, pain left arm and shoulder MEDICAL HISTORY : left humerus fracture SURGICAL HISTORY : left humerus ENCOUNTER: Subsequent ACUITY: 4 - 6 days PAIN SCORE: 6/10 LOCATION: Bilateral chest FINDINGS: Portable AP view of the chest demonstrates a normal-sized cardiac silhouette. Right IJ line tip is in the SVC. Lungs are underinflated with mild atelectasis at the bases. No effusion, consolidation, or pneumothorax is visualized. The bones demonstrate no acute finding. CONCLUSION: Underinflation with mild atelectasis at the lung bases. Otherwise, no acute finding is identified. Bienvenido Soto MD on April 25, 2016 at 8:03 Board Certified Radiologist. This report was verified electronically.
[2016-04-25] MEDS: DOCUSATE SODIUM 100 MG CAP PO SCH ×2 (09:48→23:12)
[2016-04-25] MEDS: FENOFIBRATE 145 MG TAB PO SCH (09:48)
[2016-04-25] MEDS: LISINOPRIL 20 MG TAB PO SCH (09:48)
[2016-04-25] MEDS: HYDROCHLOROTHIAZIDE 12.5 MG CAP PO SCH (09:48)
[2016-04-25] MEDS: PANTOPRAZOLE SOD 40 MG DELAYED RELEASE TAB PO SCH (09:48)
[2016-04-25] MEDS: SODIUM CHLORIDE 0.9% FLUSH 5 ML FLUSH IVF SCH ×2 (09:49→23:15)
[2016-04-25] MEDS: MAGNESIUM HYDROXIDE SUSP 30 ML CUP PO PRN (10:51)
--- NOTE | 2016-04-25 15:43 | HHI.PR ---
Subjective Subjective Notes Pain controlled. Getting out of bed with PT. Awaiting rehabilitation placement Objective Vitals/I&O Vital Signs Date Time Temp Pulse Resp B/P Pulse Ox O2 Delivery O2 Flow Rate FiO2 04/25/16 12:07 Nasal Cannula 3.00 Humidified 04/25/16 10:26 94 04/25/16 08:00 98.1 83 18 143/80 04/22/16 16:10 35 Radiology Last Impressions Pelvis X-Ray 04/19/16 162 Signed Impressions: Service Date/Time: Tuesday, April 19, 2016 16:07 - CONCLUSION: [facility] COMPARISON: No previous studies available for comparison. INDICATIONS : Trauma alert. Fall from ladder today MEDICAL HISTORY : None. SURGICAL HISTORY : None. ENCOUNTER : Initial ACUITY: 1 day PAIN SCORE: Non-responsive. LOCATION: Pelvis FINDINGS: A single frontal view of the pelvis demonstrates no evidence of fracture. The bony pelvic ring is intact. Bony mineralization is normal. The soft tissues are intact. MD CONCLUSION: Intact pelvis Pascual Lizama MD Head CT 04/19/161622 Signed Impressions: Service Date/Time: Tuesday, April 19, 2016 16:36 - CONCLUSION: Normal examination. Pascual Lizama MD Chest X-Ray 04/19/16 162 Signed Impressions: Service Date/Time: Tuesday, April 19, 2016 16:07 - CONCLUSION: No acute disease. Pascual Lizama MD Chest CT 04/19/16 162 Signed Impressions: Service Date/Time: Tuesday, April 19, 2016 16:45 - CONCLUSION: Negative examination other than appreciation of a slightly angulated offset fracture mid left humerus Pascual Lizama MD Cervical Spine CT 04/19/16 162 Signed Impressions: Service Date/Time: Tuesday, April 19, 2016 16:36 - CONCLUSION: No acute bony injury. Degenerative changes as described Pascual Lizama MD Abdomen/Pelvis CT 04/19/16 162 Signed Impressions: Service Date/Time: Tuesday, April 19, 2016 16:45 - CONCLUSION: Left acetabular fracture as described above which is an extension from the left iliac wing fracture. No dislocation. Intra-abdominal pelvic contents are negative. Pascual Lizama MD Wrist X-Ray 04/19/16 0000 Signed Impressions: Service Date/Time: Tuesday, April 19, 2016 17:40 - CONCLUSION: Abnormal appearance of base of the first metacarpal multangular articulation which could represent occult bony injury or dislocation on these limited views. Further evaluation with multi-obliquity plain film radiography of the wrist may be wording of consideration or CT scan Pascual Lizama MD Humerus X-Ray 04/19/16 0000 Signed Impressions: Service Date/Time: Tuesday, April 19, 2016 16:07 - CONCLUSION: Negative exam Pascual Lizama MD ADDENDUM: Incoordination and review of CT scan of thorax what appears to represent possible overlying external wrap or soft tissue across the mid humerus actually represents a overlying fracture. Pascual Lizama MD Narrative Exam GENERAL: 71-year-old well-nourished, well developed male lying in bed. SKIN: Warm and dry. HEAD: Atraumatic. Normocephalic. EYES: PERRL. ENT: No nasal bleeding or discharge. Mucous membranes pink and moist. NECK: Trachea midline. No JVD. CARDIOVASCULAR: Regular rate and rhythm. RESPIRATORY: No accessory muscle use. Lungs clear and diminished to auscultation. Breath sounds equal bilaterally. GASTROINTESTINAL: Abdomen soft, non-tender, nondistended. + BS. Dressing to lower abdomen C/D/I. MUSCULOSKELETAL: Extremities without cyanosis, or edema. LEFT arm with soft splint and sling in place. NEUROLOGICAL: Awake and alert. Normal speech. A/P Assessment and Plan [facility]: Patient fell approx 10 feet while climbing a ladder and landed in the grass on his LEFT side. No LOC, GCS 15. Initial complaints of LEFT arm and hip pain. INJURIES: LEFT humerus fx LEFT acetabular fx extending to LEFT iliac wing First metacarpal occult bony injury vs dislocation 04/22: ORIF Left Acetabulum and posterior hemipelvis ORIF Left Humerus Fx PMHx: HTN Diet: Regular, poor appetite. Pulmonary: IS, encouraged patient use. Pain: Percocet, pain controlled. Activity: BR, PT, OT evaluating. NWB LLE, TTWB LLE. Wheelchair training. GI: Protonix PO Bowel: Colace, MOM. LBM 04/23 DVT: Lovenox, SCD's DC central line today. Wean FiO2 for SPO2 greater than 92%, on 3 L nasal cannula. Ortho cleared for discharge. Discharge placed to inpatient rehabilitation. Insurance denied [place] admission. CM arranging for SNF placement. Plan of care discussed with patient at bedside. Patient is clear from Trauma surgery standpoint to safely discharge to rehabilitation when arrangements made. The exam, history, and the medical decision-making described in the above note were completed with the assistance of the mid-level provider. I reviewed and agree with the findings presented. I attest that I had a [id number] encounter with the patient on the same day, and personally performed and documented my assessment and findings in the medical record. Garth Flor Apr 25, 2016 15:43 Obed Cox MD Apr 26, 2016 17:33
[2016-04-25] MEDS: ACETAMINOPHEN/HYDROcodone 325 MG/10 MG TAB PO PRN (23:12)
[2016-04-26] VITALS (7 sets, daily range): BP systolic 119–133; BP diastolic 56–76; PULSE 82–99; RESP 18–19; TEMP 96.8–98.7; O2SAT 92–94
[2016-04-26] MEDS: ONDANSETRON HCL 4 MG/2 ML VIAL IV PRN (02:01)
[2016-04-26] MEDS: ENOXAPARIN SODIUM 30 MG/0.3 ML SYRINGE SQ SCH ×2 (02:02→15:09)
[2016-04-26] MEDS: MAGNESIUM HYDROXIDE SUSP 30 ML CUP PO PRN (02:11)
[2016-04-26] MEDS: INSULIN NovoLIN REGULAR SUPPLEMENTAL SCALE SQ SCH ×4 (06:32→21:36)
[2016-04-26] MEDS: PANTOPRAZOLE SOD 40 MG DELAYED RELEASE TAB PO SCH (08:54)
[2016-04-26] MEDS: HYDROCHLOROTHIAZIDE 12.5 MG CAP PO SCH (08:54)
[2016-04-26] MEDS: FENOFIBRATE 145 MG TAB PO SCH (08:55)
[2016-04-26] MEDS: LISINOPRIL 20 MG TAB PO SCH (08:55)
[2016-04-26] MEDS: SODIUM CHLORIDE 0.9% FLUSH 5 ML FLUSH IVF SCH ×2 (08:55→21:37)
[2016-04-26] MEDS: DOCUSATE SODIUM 100 MG CAP PO SCH ×2 (08:55→21:00)
[2016-04-26] MEDS: ACETAMINOPHEN/HYDROcodone 325 MG/10 MG TAB PO PRN (08:59)
[2016-04-26] MEDS ORDERED: LACTULOSE SYRUP 20 GM/30 ML CUP PO ONE (09:00)
--- NOTE | 2016-04-26 12:10 | HHI.PR ---
Subjective Subjective Notes PTD: 7 Patient sitting in a chair. He states he feels much better now than he is out of bed. Objective Vitals/I&O Vital Signs Date Time Temp Pulse Resp B/P Pulse Ox O2 Delivery O2 Flow Rate FiO2 04/26/16 10:59 92 21 04/26/16 08:00 96.8 86 18 132/76 04/25/16 23:07 Nasal Cannula 3.00 Labs Laboratory Tests Test 04/22/16 04/22/16 04/23/16 07:50 13:16 08:40 Blood Type O POSITIVE Antibody Screen NEGATIVE Crossmatch Leukocyte-Reduced Red Blood Cells Blood Bank Comment Blood Gas Puncture Site ART LINE Blood Gas Patient Temperature 98.6 Blood Gas HCO3 24 mmol/L Blood Gas Base Excess 0.3 mmol/L Blood Gas Oxygen Saturation 95 % Arterial Blood pH 7.41 Arterial Blood Partial 39 mmHg Pressure CO2 Arterial Blood Partial 129 mmHg Pressure O2 Arterial Blood Oxygen Content 16.9 Vol % Arterial Blood 2.1 % Carboxyhemoglobin Arterial Blood Methemoglobin 1.4 % Blood Gas Hemoglobin 12.5 G/DL Oxygen Delivery Device VENTILATOR Blood Gas Ventilator Setting UNKNOWN Blood Gas Inspired Oxygen 100 % White Blood Count 12.0 TH/MM3 Red Blood Count 3.33 MIL/MM3 Hemoglobin 10.2 GM/DL Hematocrit 30.4 % Mean Corpuscular Volume 91.2 FL Mean Corpuscular Hemoglobin 30.8 PG Mean Corpuscular Hemoglobin 33.7 % Concent Red Cell Distribution Width 13.9 % Platelet Count 246 TH/MM3 Mean Platelet Volume 8.2 FL Sodium Level 139 MEQ/L Potassium Level 4.0 MEQ/L Chloride Level 102 MEQ/L Carbon Dioxide Level 30.5 MEQ/L Anion Gap 7 MEQ/L Blood Urea Nitrogen 36 MG/DL Creatinine 0.98 MG/DL Estimat Glomerular Filtration 76 ML/MIN Rate Random Glucose 128 MG/DL Calcium Level 7.7 MG/DL Radiology Last Impressions Pelvis X-Ray 04/19/16 1623 Signed Impressions: Service Date/Time: Tuesday, April 19, 2016 16:07 - CONCLUSION: [facility] COMPARISON: No previous studies available for comparison. INDICATIONS : Trauma alert. Fall from ladder today MEDICAL HISTORY : None. SURGICAL HISTORY : None. ENCOUNTER : Initial ACUITY: 1 day PAIN SCORE: Non-responsive. LOCATION: Pelvis FINDINGS: A single frontal view of the pelvis demonstrates no evidence of fracture. The bony pelvic ring is intact. Bony mineralization is normal. The soft tissues are intact. CONCLUSION: Intact pelvis Pascual Lizama MD Head CT 04/19/161622 Signed Impressions: Service Date/Time: Tuesday, April 19, 2016 16:36 - CONCLUSION: Normal examination. Pascual Lizama MD Chest X-Ray 04/19/161622 Signed Impressions: Service Date/Time: Tuesday, April 19, 2016 16:07 - CONCLUSION: No acute disease. Pascual Lizama MD Chest CT 04/19/16 162 Signed Impressions: Service Date/Time: Tuesday, April 19, 2016 16:45 - CONCLUSION: Negative examination other than appreciation of a slightly angulated offset fracture mid left humerus Pascual Lizama MD Cervical Spine CT 04/19/161622 Signed Impressions: Service Date/Time: Tuesday, April 19, 2016 16:36 - CONCLUSION: No acute bony injury. Degenerative changes as described Pascual Lizama MD Abdomen/Pelvis CT 04/19/161622 Signed Impressions: Service Date/Time: Tuesday, April 19, 2016 16:45 - CONCLUSION: Left acetabular fracture as described above which is an extension from the left iliac wing fracture. No dislocation. Intra-abdominal pelvic contents are negative. Pascual Lizama MD Wrist X-Ray 04/19/16 0000 Signed Impressions: Service Date/Time: Tuesday, April 19, 2016 17:40 - CONCLUSION: Abnormal appearance of base of the first metacarpal multangular articulation which could represent occult bony injury or dislocation on these limited views. Further evaluation with multi-obliquity plain film radiography of the wrist may be wording of consideration or CT scan Pascual Lizama MD Humerus X-Ray 04/19/16 0000 Signed Impressions: Service Date/Time: Tuesday, April 19, 2016 16:07 - CONCLUSION: Negative exam Pascual Lizama MD ADDENDUM: Incoordination and review of CT scan of thorax what appears to represent possible overlying external wrap or soft tissue across the mid humerus actually represents a overlying fracture. Pascual Lizama MD Narrative Exam GENERAL: This is a 71-year-old obese male sitting up in a chair. SKIN: Warm and dry. HEAD: Atraumatic. Normocephalic. EYES: PERRLA ENT: No nasal bleeding or discharge. Mucous membranes pink and moist. NECK: Trachea midline. No JVD. CARDIOVASCULAR: Regular rate and rhythm. RESPIRATORY: No accessory muscle use. Lungs are clear to auscultation. Breath sounds equal bilaterally. No distress or dyspnea. GASTROINTESTINAL: BS + x 4 quads. Abdomen soft, non-tender, nondistended. MUSCULOSKELETAL: Extremities without cyanosis, or edema. + peripheral pulses x 4 extremities. Warm with good capillary refill and sensation. MAEW. NEUROLOGICAL: Awake and alert. Normal speech and pattern. A/P Problem List: (1) Fall (2) Left humeral fracture (3) Fall from ladder (4) Left acetabular fracture Assessment and Plan [place]: This is a 71-year-old obese male who fell approximately 10 feet while climbing a ladder. He landed in the grass on his left side. No LOC. GCS = 15. Initial complaints of left arm and left hip pain. Awaiting placement in authorization from [facility]. PMHx: HTN INJURIES: LEFT humerus fx LEFT acetabular fx extending to LEFT iliac wing First metacarpal occult bony injury vs dislocation Procedures: 04/22: ORIF Left Acetabulum and posterior hemipelvis ORIF Left Humerus Fx Consults: Orthopedics Diet: Regular diet. Tolerating po diet. Encourage good po intake with each meal. Pulmonary: Encourage good pulmonary toileting. IS at bedside and pt encouraged to use. Rationale for use explained to patient, and verbalized understanding. PAIN Management: [place] by mouth. Activity: OOB. (TTWB LLE; NWB LUE) PT and OT ordered. Wheelchair training ordered. GI prophylaxis: Protonix by mouth Bowel regimen: Colace and MOM. No BM. Intensified with lactulose 1. DVT prophylaxis: Mechanical VTE with SCDs. Chemical management with Lovenox 30 q 12. Obtain PIV, then DC central line. DC Planning: Case management consulted for assistance with final discharge disposition. Patient has been accepted for admission [facility]. However we are waiting for the insurance authorization. The insurance company needs a letter of agreement regarding payment. (Because it is the weekend, and insurance companies are closed, the patient will most likely stay within the hospital until Thursday - due to the weekend and holiday on Thursday.) Emotional support provided to patient and plan of care discussed. Patient is disappointed that he will have to wait to transfer to [facility]. Discussed with RN at bedside. Patient is hemodynamically stable and being managed on the med/surg floor. The exam, history, and the medical decision-making described in the above note were completed with the assistance of the mid-level provider. I reviewed and agree with the findings presented. I attest that I had a [id number] encounter with the patient on the same day, and personally performed and documented my assessment and findings in the medical record. Problem Qualifiers (1) Fall: Qualified Code: W19.XXXA - Fall, initial encounter (2) Left humeral fracture: (3) Fall from ladder: Qualified Code: W11.XXXA - Fall from ladder, initial encounter (4) Left acetabular fracture: Karen Resendiz Apr 26, 2016 12:10 Obed Cox MD Apr 26, 2016 18:21
[2016-04-27] VITALS (8 sets, daily range): BP systolic 106–146; BP diastolic 52–71; PULSE 68–110; RESP 18–19; TEMP 96–99; O2SAT 92–98
[2016-04-27] MEDS: ENOXAPARIN SODIUM 30 MG/0.3 ML SYRINGE SQ SCH ×2 (02:00→13:17)
[2016-04-27] MEDS: ACETAMINOPHEN/HYDROcodone 325 MG/10 MG TAB PO PRN ×5 (04:24→21:12)
[2016-04-27 05:14] LABS: BICARBONATE 31.6 MEQ/L (21.0-32.0); MAGNESIUM 2.8 MG/DL (1.5-2.5); POTASSIUM 4.2 MEQ/L (3.5-5.1)
[2016-04-27 05:21] LABS: HEMATOCRIT 32.4 % (39.0-51.0); MEAN CELL VOLUME 90.1 FL (80.0-100.0); MEAN CORPUSCULAR HGB CONC 33.2 % (32.0-36.0); PLATELET COUNT 402 TH/MM3 (150-450); RED BLOOD COUNT 3.59 MIL/MM3 (4.50-5.90); RED CELL DISTRIBUTION WIDTH 13.6 % (11.6-17.2); REVIEW FLAG FINAL; WHITE BLOOD COUNT 12.7 TH/MM3 (4.0-11.0)
[2016-04-27] MEDS: INSULIN NovoLIN REGULAR SUPPLEMENTAL SCALE SQ SCH ×4 (07:00→21:00)
[2016-04-27] MEDS: DOCUSATE SODIUM 100 MG CAP PO SCH ×2 (09:00→21:12)
[2016-04-27] MEDS: PANTOPRAZOLE SOD 40 MG DELAYED RELEASE TAB PO SCH (09:18)
[2016-04-27] MEDS: FENOFIBRATE 145 MG TAB PO SCH (09:18)
[2016-04-27] MEDS: LISINOPRIL 20 MG TAB PO SCH (09:18)
[2016-04-27] MEDS: HYDROCHLOROTHIAZIDE 12.5 MG CAP PO SCH (09:18)
[2016-04-27] MEDS: SODIUM CHLORIDE 0.9% FLUSH 5 ML FLUSH IVF SCH ×2 (09:19→21:13)
--- NOTE | 2016-04-27 12:47 | HHI.PR ---
Subjective Subjective Notes PTD: 8 Patient is asleep in his chair, and he arouses easily. No complaints offered today. Objective Vitals/I&O Vital Signs Date Time Temp Pulse Resp B/P Pulse Ox O2 Delivery O2 Flow Rate FiO2 04/27/16 09:20 93 Nasal Cannula 2.00 04/27/16 07:55 99.0 84 18 146/67 04/26/16 10:59 21 Labs Laboratory Tests Test 04/27/16 04:02 White Blood Count 12.7 Red Blood Count 3.59 Hemoglobin 10.8 Hematocrit 32.4 Mean Corpuscular Volume 90.1 Mean Corpuscular Hemoglobin 30.0 Mean Corpuscular Hemoglobin 33.2 Concent Red Cell Distribution Width 13.6 Platelet Count 402 Mean Platelet Volume 8.2 Sodium Level 136 Potassium Level 4.2 Chloride Level 96 Carbon Dioxide Level 31.6 Anion Gap 8 Blood Urea Nitrogen 27 Creatinine 0.80 Estimat Glomerular Filtration 96 Rate Random Glucose 119 Calcium Level 8.2 Magnesium Level 2.8 Radiology Last Impressions Pelvis X-Ray 04/19/161622 Signed Impressions: Service Date/Time: Tuesday, April 19, 2016 16:07 - CONCLUSION: [facility] COMPARISON: No previous studies available for comparison. INDICATIONS : Trauma alert. Fall from ladder today MEDICAL HISTORY : None. SURGICAL HISTORY : None. ENCOUNTER : Initial ACUITY: 1 day PAIN SCORE: Non-responsive. LOCATION: Pelvis FINDINGS: A single frontal view of the pelvis demonstrates no evidence of fracture. The bony pelvic ring is intact. Bony mineralization is normal. The soft tissues are intact. CONCLUSION: Intact pelvis Pascual Lizama MD Head CT 04/19/161622 Signed Impressions: Service Date/Time: Tuesday, April 19, 2016 16:36 - CONCLUSION: Normal examination. Pascual Lizama MD Chest X-Ray 04/19/161622 Signed Impressions: Service Date/Time: Tuesday, April 19, 2016 16:07 - CONCLUSION: No acute disease. Pascual Lizama MD Chest CT 04/19/161622 Signed Impressions: Service Date/Time: Tuesday, April 19, 2016 16:45 - CONCLUSION: Negative examination other than appreciation of a slightly angulated offset fracture mid left humerus Pascual Liazma MD Cervical Spine CT 04/19/161622 Signed Impressions: Service Date/Time: Tuesday, April 19, 2016 16:36 - CONCLUSION: No acute bony injury. Degenerative changes as described Pascual Lizama MD Abdomen/Pelvis CT 04/19/16 1623 Signed Impressions: Service Date/Time: Tuesday, April 19, 2016 16:45 - CONCLUSION: Left acetabular fracture as described above which is an extension from the left iliac wing fracture. No dislocation. Intra-abdominal pelvic contents are negative. Pascual Lizama MD Wrist X-Ray 04/19/16 0000 Signed Impressions: Service Date/Time: Tuesday, April 19, 2016 17:40 - CONCLUSION: Abnormal appearance of base of the first metacarpal multangular articulation which could represent occult bony injury or dislocation on these limited views. Further evaluation with multi-obliquity plain film radiography of the wrist may be wording of consideration or CT scan Pascual Lizama MD Humerus X-Ray 04/19/16 0000 Signed Impressions: Service Date/Time: Tuesday, April 19, 2016 16:07 - CONCLUSION: Negative exam Pascual Lizama MD ADDENDUM: Incoordination and review of CT scan of thorax what appears to represent possible overlying external wrap or soft tissue across the mid humerus actually represents a overlying fracture. Pascual Lizama MD Narrative Exam GENERAL: This is a 71-year-old obese male asleep in his chair. SKIN: Warm and dry. HEAD: Atraumatic. Normocephalic. EYES: PERRLA ENT: No nasal bleeding or discharge. Mucous membranes pink and moist. NECK: Trachea midline. No JVD. CARDIOVASCULAR: Regular rate and rhythm. RESPIRATORY: No accessory muscle use. Lungs are clear to auscultation. Breath sounds equal bilaterally. No distress or dyspnea. GASTROINTESTINAL: BS + x 4 quads. Abdomen soft, non-tender, nondistended. MUSCULOSKELETAL: Extremities without cyanosis, or edema. + peripheral pulses x 4 extremities. Warm with good capillary refill and sensation. MAEW. NEUROLOGICAL: Asleep, but arouses easily Normal speech and pattern. A/P Problem List: (1) Fall (2) Left humeral fracture (3) Fall from ladder (4) Left acetabular fracture Assessment and Plan [place]: This is a 71-year-old obese male who fell approximately 10 feet while climbing a ladder. He landed in the grass on his left side. No LOC. GCS = 15. Initial complaints of left arm and left hip pain. Awaiting placement in authorization from SNF. PMHx: HTN INJURIES: LEFT humerus fx LEFT acetabular fx extending to LEFT iliac wing First metacarpal occult bony injury vs dislocation Procedures: 04/22: ORIF Left Acetabulum and posterior hemipelvis ORIF Left Humerus Fx Consults: Orthopedics Diet: Regular diet. Tolerating po diet. Encourage good po intake with each meal. Pulmonary: Encourage good pulmonary toileting. IS at bedside and pt encouraged to use. Rationale for use explained to patient, and verbalized understanding. PAIN Management: [place] by mouth. Activity: OOB. (TTWB LLE; NWB LUE) PT and OT ordered. Wheelchair training ordered. GI prophylaxis: Protonix by mouth Bowel regimen: Colace and MOM. BM x 4. DVT prophylaxis: Mechanical VTE with SCDs. Chemical management with Lovenox 30 q 12. DC Planning: Case management consulted for assistance with final discharge disposition. Patient has been accepted for admission [facility]. However we are waiting for the insurance authorization. The insurance company needs a letter of agreement regarding payment. (Because it is the weekend, and insurance companies are closed, the patient will most likely stay within the hospital until Thursday - due to the weekend and holiday on Thursday.) Emotional support provided to patient and plan of care discussed. Patient is disappointed that he will have to wait to transfer to [facility]. Discussed with RN at bedside. Patient is hemodynamically stable and being managed on the med/surg floor. The exam, history, and the medical decision-making described in the above note were completed with the assistance of the mid-level provider. I reviewed and agree with the findings presented. I attest that I had a [id number] encounter with the patient on the same day, and personally performed and documented my assessment and findings in the medical record. Problem Qualifiers (1) Fall: Qualified Code: W19.XXXA - Fall, initial encounter (2) Left humeral fracture: (3) Fall from ladder: Qualified Code: W11.XXXA - Fall from ladder, initial encounter (4) Left acetabular fracture: Fager-Hunt,Karen F M[employer] REPAIRER Apr 27, 2016 12:47 Obed Cox MD Apr 29, 2016 13:23
[2016-04-27] MEDS: ONDANSETRON HCL 4 MG/2 ML VIAL IV PRN (23:53)
[2016-04-28 00:15] VITALS: BP 135/61; PULSE 92; RESP 20; TEMP 98.1; O2SAT 92
[2016-04-28] MEDS: ENOXAPARIN SODIUM 30 MG/0.3 ML SYRINGE SQ SCH ×2 (01:56→15:39)
[2016-04-28] MEDS: ACETAMINOPHEN/HYDROcodone 325 MG/10 MG TAB PO PRN ×5 (01:56→22:02)
[2016-04-28 04:25] VITALS: BP 129/65; PULSE 75; RESP 20; TEMP 96.5; O2SAT 93
--- NOTE | 2016-04-28 06:34 | PD.ORT.PN ---
Subjective Subjective Remarks Resting comfortably with pain controlled Objective Vitals Vital Signs Date Time Temp Pulse Resp B/P Pulse Ox O2 Delivery O2 Flow Rate FiO2 04/28/16 00:15 98.1 92 20 135/61 92 04/27/16 20:20 97.0 69 19 115/58 95 04/27/16 16:00 98.8 110 18 125/71 98 04/27/16 14:50 97.8 74 18 106/52 93 04/27/16 12:00 99.0 68 18 121/58 93 04/27/16 09:20 93 Nasal Cannula 2.00 04/27/16 07:55 99.0 84 18 146/67 92 I/O 04/27/16 04/27/16 04/27/16 04/28/16 04/28/16 04/28/16 07:00 15:00 23:00 07:00 15:00 23:00 Intake Total 480 ml 720 ml Output Total 920 ml 450 ml Balance -440 ml 270 ml Intake Oral 480 ml 720 ml Output Urine Total 920 ml 450 ml # Bowel Movements 0 1 Result Diagram: 04/27/162 04/27/162 Objective Remarks Pelvis: Incisions clean dry and intact Left lower extremity: Tenderness with movement of hip. No pain with motion of knee or ankle. Distally neurovascularly intact. Strong dorsiflexion plantar flexion of foot Left upper extremity: Clean dry dressings intact with sling in place. Normal pain with elbow motion. Distally intact sensation over the radial ulnar and median nerve distributions with good capillary refills. He is able fully extend his fingers and make a fist Assessment & Plan Assessment and Plan 1) ORIF Left Acetabulum and posterior hemipelvis POD 6 2) ORIF Left Humerus Fx POD 6 Nonweightbearing left upper extremity, sling when seated Physical therapy for passive range of motion of shoulder and elbow. Active range of motion of wrist and fingers Toe-touch weightbearing left lower extremity with no active leglifts or quad sets daily dressing changes both left upper extremity and left pelvis Lovenox then convert to Xarelto after discharge Incentive spirometry SCDs Rehabilitation planning: plan for DC to rehab when arranged f/u with [facility] or [facility] in 2 weeks TAM ADKINS PA-C Apr 28, 2016 06:34
[2016-04-28] MEDS: INSULIN NovoLIN REGULAR SUPPLEMENTAL SCALE SQ SCH ×4 (07:00→21:32)
[2016-04-28 08:00] VITALS: BP 132/67; PULSE 70; RESP 18; TEMP 96.7; O2SAT 95
[2016-04-28] MEDS: FENOFIBRATE 145 MG TAB PO SCH (09:27)
[2016-04-28] MEDS: DOCUSATE SODIUM 100 MG CAP PO SCH ×2 (09:27→21:32)
[2016-04-28] MEDS: PANTOPRAZOLE SOD 40 MG DELAYED RELEASE TAB PO SCH (09:28)
[2016-04-28] MEDS: HYDROCHLOROTHIAZIDE 12.5 MG CAP PO SCH (09:28)
[2016-04-28] MEDS: LISINOPRIL 20 MG TAB PO SCH (09:28)
[2016-04-28] MEDS: SODIUM CHLORIDE 0.9% FLUSH 5 ML FLUSH IVF SCH ×2 (09:29→21:00)
--- NOTE | 2016-04-28 10:39 | HHI.PR ---
Subjective Subjective Notes PTD: 9 Patient sitting up in a chair, he states he is doing "okay." He is just waiting until he can be placed in [facility] Objective Vitals/I&O Vital Signs Date Time Temp Pulse Resp B/P Pulse Ox O2 Delivery O2 Flow Rate FiO2 04/28/16 08:00 96.7 70 18 132/67 95 04/27/16 09:20 Nasal Cannula 2.00 04/26/16 10:59 21 Labs Laboratory Tests Test 04/22/16 04/27/16 07:50 04:02 Blood Type O POSITIVE Antibody Screen NEGATIVE Crossmatch Leukocyte-Reduced Red Blood Cells Blood Bank Comment White Blood Count 12.7 TH/MM3 Red Blood Count 3.59 MIL/MM3 Hemoglobin 10.8 GM/DL Hematocrit 32.4 % Mean Corpuscular Volume 90.1 FL Mean Corpuscular Hemoglobin 30.0 PG Mean Corpuscular Hemoglobin 33.2 % Concent Red Cell Distribution Width 13.6 % Platelet Count 402 TH/MM3 Mean Platelet Volume 8.2 FL Sodium Level 136 MEQ/L Potassium Level 4.2 MEQ/L Chloride Level 96 MEQ/L Carbon Dioxide Level 31.6 MEQ/L Anion Gap 8 MEQ/L Blood Urea Nitrogen 27 MG/DL Creatinine 0.80 MG/DL Estimat Glomerular Filtration 96 ML/MIN Rate Random Glucose 119 MG/DL Calcium Level 8.2 MG/DL Magnesium Level 2.8 MG/DL Radiology Last Impressions Pelvis X-Ray 04/19/161622 Signed Impressions: Service Date/Time: Tuesday, April 19, 2016 16:07 - CONCLUSION: [place] COMPARISON: No previous studies available for comparison. INDICATIONS : Trauma alert. Fall from ladder today MEDICAL HISTORY : None. SURGICAL HISTORY : None. ENCOUNTER : Initial ACUITY: 1 day PAIN SCORE: Non-responsive. LOCATION: Pelvis FINDINGS: A single frontal view of the pelvis demonstrates no evidence of fracture. The bony pelvic ring is intact. Bony mineralization is normal. The soft tissues are intact. CONCLUSION: Intact pelvis Pascual Lizama MD Head CT 04/19/161622 Signed Impressions: Service Date/Time: Tuesday, April 19, 2016 16:36 - CONCLUSION: Normal examination. Pascual Lziama MD Chest X-Ray 04/19/161622 Signed Impressions: Service Date/Time: Tuesday, April 19, 2016 16:07 - CONCLUSION: No acute disease. Pascual Lizama MD Chest CT 04/19/16 1623 Signed Impressions: Service Date/Time: Tuesday, April 19, 2016 16:45 - CONCLUSION: Negative examination other than appreciation of a slightly angulated offset fracture mid left humerus Pascual Lizama MD Cervical Spine CT 04/19/16 162 Signed Impressions: Service Date/Time: Tuesday, April 19, 2016 16:36 - CONCLUSION: No acute bony injury. Degenerative changes as described Pascual Lizama MD Abdomen/Pelvis CT 04/19/16 162 Signed Impressions: Service Date/Time: Tuesday, April 19, 2016 16:45 - CONCLUSION: Left acetabular fracture as described above which is an extension from the left iliac wing fracture. No dislocation. Intra-abdominal pelvic contents are negative. Pascual Lizama MD Wrist X-Ray 04/19/16 0000 Signed Impressions: Service Date/Time: Tuesday, April 19, 2016 17:40 - CONCLUSION: Abnormal appearance of base of the first metacarpal multangular articulation which could represent occult bony injury or dislocation on these limited views. Further evaluation with multi-obliquity plain film radiography of the wrist may be wording of consideration or CT scan Pascual Lizama MD Humerus X-Ray 04/19/16 0000 Signed Impressions: Service Date/Time: Tuesday, April 19, 2016 16:07 - CONCLUSION: Negative exam Pascual Lizama MD ADDENDUM: Incoordination and review of CT scan of thorax what appears to represent possible overlying external wrap or soft tissue across the mid humerus actually represents a overlying fracture. Pascual Lizama MD Narrative Exam GENERAL: This is a 71-year-old obese male sitting up in a chair in no distress. SKIN: Warm and dry. HEAD: Atraumatic. Normocephalic. EYES: PERRLA ENT: No nasal bleeding or discharge. Mucous membranes pink and moist. NECK: Trachea midline. No JVD. CARDIOVASCULAR: Regular rate and rhythm. RESPIRATORY: No accessory muscle use. Lungs are clear to auscultation. Breath sounds equal bilaterally. No distress or dyspnea. GASTROINTESTINAL: BS + x 4 quads. Abdomen soft, non-tender, nondistended. MUSCULOSKELETAL: LEFT arm is in a sling. Extremities without cyanosis, or edema. + peripheral pulses x 4 extremities. Warm with good capillary refill and sensation. MAEW. NEUROLOGICAL: Awake and alert 3. Normal speech and pattern. A/P Problem List: (1) Fall (2) Left humeral fracture (3) Fall from ladder (4) Left acetabular fracture Assessment and Plan CREEK: This is a 71-year-old obese male who fell approximately 10 feet while climbing a ladder. He landed in the grass on his left side. No LOC. GCS = 15. Initial complaints of left arm and left hip pain. Awaiting placement in authorization from SNF. PMHx: HTN INJURIES: LEFT humerus fx LEFT acetabular fx extending to LEFT iliac wing First metacarpal occult bony injury vs dislocation Procedures: 04/22: ORIF Left Acetabulum and posterior hemipelvis ORIF Left Humerus Fx Consults: Orthopedics Diet: Regular diet. Tolerating po diet. Encourage good po intake with each meal. Pulmonary: Encourage good pulmonary toileting. IS at bedside and pt encouraged to use. Rationale for use explained to patient, and verbalized understanding. PAIN Management: [place] by mouth. Activity: OOB. (TTWB LLE; NWB LUE) PT and OT ordered. Wheelchair training ordered. GI prophylaxis: Protonix by mouth Bowel regimen: Colace and MOM. BM x 1. DVT prophylaxis: Mechanical VTE with SCDs. Chemical management with Lovenox 30 q 12. DC Planning: Case management consulted for assistance with final discharge disposition. Patient has been accepted for admission [facility]. However we are waiting for the insurance authorization. The insurance company needs a letter of agreement regarding payment. (The insurance company is closed today due to the holiday. We must wait till tomorrow to make contact in order to transition the patient to [facility].) Emotional support provided to patient and plan of care discussed. Discussed with RN at bedside. Patient is hemodynamically stable and is safe to discharge to [facility]. He is being managed on the med/surg floor until arrangements can be made for him to transition to the nursing facility. Problem Qualifiers (1) Fall: Qualified Code: W19.XXXA - Fall, initial encounter (2) Left humeral fracture: (3) Fall from ladder: Qualified Code: W11.XXXA - Fall from ladder, initial encounter (4) Left acetabular fracture: Karen Resendiz Apr 28, 2016 10:39
[2016-04-28 12:00] VITALS: BP 109/53; PULSE 75; RESP 18; TEMP 98.3; O2SAT 93
[2016-04-28 16:00] VITALS: BP 122/59; PULSE 86; RESP 18; TEMP 96.6; O2SAT 93
[2016-04-28 20:37] VITALS: BP 113/58; PULSE 85; RESP 17; TEMP 98.7; O2SAT 92
[2016-04-29 00:38] VITALS: BP 103/60; PULSE 80; RESP 16; TEMP 96.4; O2SAT 93
[2016-04-29] MEDS: ENOXAPARIN SODIUM 30 MG/0.3 ML SYRINGE SQ SCH ×2 (03:09→14:03)
[2016-04-29] MEDS: ACETAMINOPHEN/HYDROcodone 325 MG/10 MG TAB PO PRN ×3 (03:41→14:02)
[2016-04-29] MEDS: INSULIN NovoLIN REGULAR SUPPLEMENTAL SCALE SQ SCH ×2 (06:27→12:10)
--- NOTE | 2016-04-29 06:33 | PD.ORT.PN ---
Subjective Subjective Remarks Resting comfortably with pain controlled Objective Vitals Vital Signs Date Time Temp Pulse Resp B/P Pulse Ox O2 Delivery O2 Flow Rate FiO2 04/29/16 00:38 96.4 80 16 103/60 93 04/28/16 20:37 98.7 85 17 113/58 92 04/28/16 16:00 96.6 86 18 122/59 93 04/28/16 12:00 98.3 75 18 109/53 93 04/28/16 08:00 96.7 70 18 132/67 95 I/O 04/28/16 04/28/16 04/28/16 04/29/16 04/29/16 04/29/16 07:00 15:00 23:00 07:00 15:00 23:00 Intake Total 1680 ml 720 ml Output Total 1700 ml 200 ml Balance -20 ml 520 ml Intake Oral 1680 ml 720 ml Output Urine Total 1700 ml 200 ml # Bowel Movements 1 0 Result Diagram: 04/27/1640104/27/162 Objective Remarks Pelvis: Incisions clean dry and intact Left lower extremity: Tenderness with movement of hip. No pain with motion of knee or ankle. Distally neurovascularly intact. Strong dorsiflexion plantar flexion of foot Left upper extremity: Clean dry dressings intact with sling in place. Normal pain with elbow motion. Distally intact sensation over the radial ulnar and median nerve distributions with good capillary refills. He is able fully extend his fingers and make a fist Assessment & Plan Assessment and Plan 1) ORIF Left Acetabulum and posterior hemipelvis POD 7 2) ORIF Left Humerus Fx POD 7 Nonweightbearing left upper extremity, sling when seated Physical therapy for passive range of motion of shoulder and elbow. Active range of motion of wrist and fingers Toe-touch weightbearing left lower extremity with no active leglifts or quad sets daily dressing changes both left upper extremity and left pelvis Lovenox then convert to Xarelto after discharge Incentive spirometry SCDs Rehabilitation planning: plan for DC to rehab today f/u with [facility] or [facility] in 1 week TAM ADKINS PA-C Apr 29, 2016 06:33
[2016-04-29 08:00] VITALS: BP 115/69; PULSE 93; RESP 20; TEMP 97.4; O2SAT 93
[2016-04-29] MEDS: DOCUSATE SODIUM 100 MG CAP PO SCH (09:00)
[2016-04-29 09:11] VITALS: O2SAT 93
[2016-04-29] MEDS: FENOFIBRATE 145 MG TAB PO SCH (10:04)
[2016-04-29] MEDS: PANTOPRAZOLE SOD 40 MG DELAYED RELEASE TAB PO SCH (10:04)
[2016-04-29] MEDS: LISINOPRIL 20 MG TAB PO SCH (10:04)
[2016-04-29] MEDS: HYDROCHLOROTHIAZIDE 12.5 MG CAP PO SCH (10:04)
[2016-04-29] MEDS: SODIUM CHLORIDE 0.9% FLUSH 5 ML FLUSH IVF SCH (10:05)
[2016-04-29 12:00] VITALS: BP 117/67; PULSE 72; RESP 20; TEMP 97.1; O2SAT 94
--- NOTE | 2016-04-29 15:50 | HHI.DS ---
Discharge Summary Admission Date Apr 19, 2016 at 16:31 Discharge Date: Apr 29, 2016 Admitting Diagnosis left humerus fracture, fall from ladder, trauma alert (1) Fall Diagnosis: Principal (2) Left humeral fracture Diagnosis: Principal (3) Fall from ladder Diagnosis: Principal (4) Left acetabular fracture Diagnosis: Principal Brief History Fall. CBC/BMP: 04/27/16 0402 04/27/16 0402 Significant Findings Laboratory Tests Test 04/27/16 04:02 White Blood Count 12.7 TH/MM3 (4.0-11.0) Red Blood Count 3.59 MIL/MM3 (4.50-5.90) Hemoglobin 10.8 GM/DL (13.0-17.0) Hematocrit 32.4 % (39.0-51.0) Chloride Level 96 MEQ/L (98-107) Blood Urea Nitrogen 27 MG/DL (7-18) Random Glucose 119 MG/DL (74-106) Calcium Level 8.2 MG/DL (8.5-10.1) Magnesium Level 2.8 MG/DL (1.5-2.5) Imaging Last Impressions Chest X-Ray 04/25/16 0600 Signed Impressions: Service Date/Time: Monday, April 25, 2016 06:51 - CONCLUSION: Underinflation with mild atelectasis at the lung bases. Otherwise, no acute finding is identified. Bienvenido Soto MD Pelvis X-Ray 04/22/16 0000 Signed Impressions: Service Date/Time: Friday, April 22, 2016 13:35 - CONCLUSION: Satisfactory appearance of the left hemipelvis following ORIF as described. Hermes Simon MD Humerus X-Ray 04/22/16 0000 Signed Impressions: Service Date/Time: Friday, April 22, 2016 13:35 - CONCLUSION: Satisfactory appearance of the left humerus status post ORIF. Hermes Simon MD Multiplanar Reconstruction 04/21/16 0000 Signed Impressions: Service Date/Time: Thursday, April 21, 2016 06:45 - CONCLUSION: 3D reconstructions as described above. Parmjit Silveira MD FACR Head CT 04/19/16 1623 Signed Impressions: Service Date/Time: Tuesday, April 19, 2016 16:36 - CONCLUSION: Normal examination. Pascual Lizama MD Chest CT 04/19/16 1623 Signed Impressions: Service Date/Time: Tuesday, April 19, 2016 16:45 - CONCLUSION: Negative examination other than appreciation of a slightly angulated offset fracture mid left humerus Pascual Lizama MD Cervical Spine CT 04/19/16 1623 Signed Impressions: Service Date/Time: Tuesday, April 19, 2016 16:36 - CONCLUSION: No acute bony injury. Degenerative changes as described Pascual Lizama MD Abdomen/Pelvis CT 04/19/16 1623 Signed Impressions: Service Date/Time: Tuesday, April 19, 2016 16:45 - CONCLUSION: Left acetabular fracture as described above which is an extension from the left iliac wing fracture. No dislocation. Intra-abdominal pelvic contents are negative. Pascual Lizama MD Wrist X-Ray 04/19/16 0000 Signed Impressions: Service Date/Time: Tuesday, April 19, 2016 17:40 - CONCLUSION: Abnormal appearance of base of the first metacarpal multangular articulation which could represent occult bony injury or dislocation on these limited views. Further evaluation with multi-obliquity plain film radiography of the wrist may be wording of consideration or CT scan Pascual Lizama MD PE at Discharge GENERAL: This is a 71-year-old obese male sitting up in a chair in no distress. SKIN: Warm and dry. HEAD: Atraumatic. Normocephalic. EYES: PERRLA ENT: No nasal bleeding or discharge. Mucous membranes pink and moist. NECK: Trachea midline. No JVD. CARDIOVASCULAR: Regular rate and rhythm. RESPIRATORY: No accessory muscle use. Lungs are clear to auscultation. Breath sounds equal bilaterally. No distress or dyspnea. GASTROINTESTINAL: BS + x 4 quads. Abdomen soft, non-tender, nondistended. MUSCULOSKELETAL: LEFT arm is in a sling. Extremities without cyanosis, or edema. + peripheral pulses x 4 extremities. Warm with good capillary refill and sensation. MAEW. NEUROLOGICAL: Awake and alert 3. Normal speech and pattern. Hospital Course This is a 71-year-old male who sustained a fall of approximately 10 feet. He was climbing a ladder and fell and landed on the grass on his LEFT side. No LOC. GCS = 15. Initial complaints of left arm and left hip pain. Inpatient rehabilitation admission was attempted, however her his insurance would not cover it, therefore he was discharged to a SNF. PMHx: HTN INJURIES: LEFT humerus fx LEFT acetabular fx extending to LEFT iliac wing First metacarpal occult bony injury vs dislocation Procedures: 04/22: ORIF Left Acetabulum and posterior hemipelvis ORIF Left Humerus Fx Consults: Orthopedics. The patient is now tolerating a po diet. Eating and drinking well. Pain is being managed well with PO pain medications, and patient is being a provided with a script for pain meds upon discharge to continue at the SNF. Pt is having regular bowel movements, and have recommended to patient to continue with stool softeners at the SNF while taking narcotic pain medications. Pt has been participating in PT and OT while admitted at [facility] and has been ambulating with their assistance and independently . Therapy shall continue at the SNF. All follow up appointments have been provided and discussed with the patient. It is recommended that the patient keeps all his follow up appointments for continued recovery. Therefore, the patient is stable to be safely discharged to [facility] from a trauma surgery standpoint. Thank you for allowing us to participate in his care. We wish Carlos the best in his recovery. Pt Condition on Discharge: Stable Discharge Disposition: Rehab Inpatient Discharge Instructions DIET: Follow Instructions for: As Tolerated, No Restrictions Activities you can perform: Toe Touch Weight Bearing, Non Weight Bearing Other Activity Instructions: Toe touch weight bearing LLE, Non weight bearing Karen Ceja Apr 29, 2016 15:50
== END 2016-04-29 15:24 | DRG 492 ==
LOC: NEPI 16:11 → EDBD 16:31 → NEDA 16:31 → N06B 19:11
PROVIDERS: ADMIT Surgery; ATTEND Surgery
PROC: 0PSG04Z Reposition Left Humeral Shaft with Internal Fixation Device, Open Approach (ICD-10-PCS; principal; 2016-04-22 10:28)
PROC: 0QS504Z Reposition Left Acetabulum with Internal Fixation Device, Open Approach (ICD-10-PCS; 2016-04-22 10:28)
DX: S42.302A Unspecified fracture of shaft of humerus, left arm, initial encounter for closed fracture (principal); S32.492A Other specified fracture of left acetabulum, initial encounter for closed fracture; E66.9 Obesity, unspecified; I10 Essential (primary) hypertension; K59.03 Drug induced constipation; T40.605A Adverse effect of unspecified narcotics, initial encounter; W11.XXXA Fall on and from ladder, initial encounter; Y93.H2 Activity, gardening and landscaping; Z68.37 Body mass index [BMI] 37.0-37.9, adult
CPT/HCPCS: 36430; 70450; 71010; 71260; 72125; 72170; 72190; 73060; 73100; 74177; 76000; 76377; 80048; 82435; 82565; 82805; 82947; 82948; 83735; 84132; 84295; 84520; 85014; 85018; 85025; 85027; 85610; 85730; 86850; 86900; 86901; 86920; 93005; 94002; 94150; 94664; 94762; 96374; 96375; 96376; 99291; C1713; C1769; G0390; J0690; J1100; J1580; J1644; J1650; J2250; J2270; J2370; J2405; J2710; J2765; J3010; J3370; J7030; J7050; J7120; J7613; P9016; Q9967